=== PATIENT | female | born 1965 | race African-American/Black ===

== ENCOUNTER 2020-07-08 10:42 | Emergency (ER) | payer MEDICAID, SELFPAY ==
[2020-07-08 10:42] VITALS: BP 146/110; PULSE 77; RESP 18; TEMP 36.2; O2SAT 99; BMI 39.7
--- NOTE | 2020-07-08 10:52 | VDLE_ITS ---
Reason For Study: LLE Pain Procedure LEFT Exam performed portable in ED. GSV is normal. A preliminary report was called and/or faxed CFV is compressible, spontaneous, phasic, to Konrad TRUONG. competent, and demonstrates normal augmentation. FV is compressible, spontaneous, phasic, competent and demonstrates normal augmentation. POP V is compressible, spontaneous, phasic, competent and demonstrates normal augmentation. T/P Trunk is compressible. PTV is compressible. LT PerV is compressible. Patient unable to tolerate compressions at distal thigh; relied on color doppler. Interpretation Summary There is no evidence of left lower extremity deep vein thrombosis. Left great saphenous vein appears patent and compressible segmentally. See comment regarding distal thigh Ordering Physician: Konrad Ridley Referring Physician: Zack Staples Performed By: Cici Corona, LUIS FELIPE, RVT
--- NOTE | 2020-07-08 11:11 | ED.DCSUM_ITS ---
History of Present Illness Informant: Patient, Family Occurred: - - 2 years Mechanism/Context: - - No injury Onset: - - 2 years Context: Gradual Onset Timing: Continuous Quality of Pain: Throbbing Location: Left leg Current Severity: Mild Maximum Severity: Mild Worsened by: Movement and ambulation Relieved by: Nothing Associated Symptoms: Negative for: Parasthesia, Weakness, Loss of Funtion Narrative: 54-year-old female history of PTSD and fibromyalgia presents to the emergency department after being sent to the emergency department from the local urgent care to rule out DVT. Patient has not seen a doctor in 2 years and has been dealing with pain in her left leg for 2 years. It is mostly in her posterior knee and her calf. It is been constant for the last 2 years. No trauma or injury. No numbness tingling or weakness. No recent travel or surgery. No history of DVT or PE. She is not on oral control pills. No hemoptysis or chest pain. No trauma. She is still ambulatory. No back pain or fevers. No rash. Rest of her review of systems are negative Tetanus Immunization: Unknown Prior similar symptoms: No Recent Illness/Hospitalization: No <Konrad Ridley - Last Filed: 07/08/20 11:57> <Donaldo Jovel - Last Filed: 07/08/20 12:21> Chief Complaint: Lower Extremity Injury Past Medical History Prior records reviewed: Yes Past Medical History: - - PTSD and fibromyalgia Surgical History: no surgical history Lives: With Family Smoking Status: Never smoker Alcohol: None Drugs: None <Konrad Ridley - Last Filed: 07/08/20 11:57> <Donaldo Jovel - Last Filed: 07/08/20 12:21> - Allergies and Home Meds Allergies/Adverse Reactions: Allergies No Known Allergies Allergy (Verified 07/08/20 10:44) Primary Care Physician: Zack Staples DO [Primary Care Provider] - Keep Link appointment Review of Systems All systems negative except as indicated General: Denies: Chills, Fever, Sweats Eyes: Denies: Visual changes - bilaterally, Diplopia ENT: Denies: Rhinorrhea, Sore throat Cardiovascular: Denies: Chest pain, Palpitations Respiratory: Denies: Dyspnea, Cough, Dyspnea on exertion Gastrointestinal: Denies: Abdominal pain, Nausea, Vomiting, Diarrhea, Melena, Hematochezia Genitourinary: Denies: Dysuria, Hematuria, Frequency Musculoskeletal: Reports: Swelling, Extremity Pain. Denies: Back pain Skin: Denies: Rash, Wounds Neurological: Denies: Headache, Weakness, Numbness <Konrad Ridley - Last Filed: 07/08/20 11:57> Physical Exam Vital Signs/Narrative: Vital Signs Temp Pulse Resp BP Pulse Ox 07/08/20 10:42 97.2 F L 77 18 146/110 H 99 Inital Vital Signs reviewed: Yes - Extremity Exam Left Tib Fib: - - Patient has no asymmetrical leg swelling. She has 1+ edema of both lower extremities. She has no redness no warmth no palpable cords she has no bruising or ecchymosis. DP and PT pulse normal left and right lower extremity. He has normal sensation throughout left lower extremity. No calf pain on palpation. She has normal range of motion actively at her left hip knee and ankle. She has no pain on palpation of her thigh. Femoral pulse is normal. Back is nontender on palpation. She is ambulatory General: Well nourished, Well developed Head: Normocephalic, Atraumatic Eyes: Perrl, EOMI ENT: No Trauma, Moist Mucous Membranes Neck: Nontender, Full ROM Cardiovascular: Regular rate, Regular rhythm, No murmurs Respiratory: No distress, CTA bilaterally, Chest nontender Abdomen: Soft, Nontender, Nondistended, Normal bowel sounds Back: Nontender Skin: Normal color, No rash Neurological: Alert, Oriented x3, Cranial nerves II-XII grossly intact, Normal Strength, Normal Sensation Psychological: Normal affect <Konrad Ridley - Last Filed: 07/08/20 11:57> Vital Signs/Narrative: Vital Signs Temp Pulse Resp BP Pulse Ox 07/08/20 12:18 76 18 152/87 H 97 07/08/20 10:42 97.2 F L 77 18 146/110 H 99 <Donaldo Jovel - Last Filed: 07/08/20 12:21> Diagnostic/Tx/Re-eval - Medical Decision Making Patient's left lower extremity venous ultrasound was negative. Patient was reassured. We will place an Bryant wrap on her leg. She will rest ice and elevate. She has an upcoming appointment with her primary care physician for close follow-up. At this time she has no signs of infection or compartment syndrome and we feel she is safe for outpatient follow-up. She will use anti- inflammatories and Tylenol and follow-up as directed or return for worsening symptoms which were discussed <Konrad Ridley - Last Filed: 07/08/20 11:57> - Medical Decision Making Patient was seen with me. I did a [id number] examination with the patient. Patient presents for possible DVT in her left leg. Patient admits to pain in her left leg. Patient states the pain is in her hip and radiates down to her lower leg and ankle area. Patient denies any trauma or injury. Patient went to urgent care earlier and was referred to the emergency department. Vital signs are stable. Patient is afebrile. Patient is in no acute distress. Musculoskeletal exam reveals mild tenderness over the left knee and left leg. There is pain with dorsiflexion of the left ankle. There is mild edema of the left leg compared to the right. Range of motion of the left knee was limited secondary to pain. Sensation was intact to light touch in all digits. Capillary refill was less than 2 seconds in all digits. Venous duplex of the left leg was obtained. There is no evidence of DVT. Patient was instructed to ice and elevate the left leg. Patient was instructed to take anti-inflammatory medication or Tylenol as needed for pain. Patient was instructed to return if worse in any way. Patient understood and was agreeable with the plan. All questions were answered. <Donaldo Jovel - Last Filed: 07/08/20 12:21> ED Disposition <Konrad Ridley - Last Filed: 07/08/20 11:57> <Donaldo Jovel - Last Filed: 07/08/20 12:21> - Plan for ED Patient: Disposition: Home or Assisted Living Diagnosis: Pain of left lower extremity Instructions: ED Peripheral Edema, Unilateral Referrals: Zack Staples DO [Primary Care Provider] - Keep Link appointment
[2020-07-08 12:18] VITALS: BP 152/87; PULSE 76; RESP 18; O2SAT 97
== END 2020-07-08 12:32 | disposition home or self-care (01) ==
PROVIDERS: Emergency Provider Physician Assistant Medical; PCP Student in an Organized Health Care Education/Training Program
DX: M79.605 Pain in left leg (principal); M79.7 Fibromyalgia
CPT/HCPCS: 93971; 99282

== ENCOUNTER 2021-08-30 06:48 | Observation (INO) | payer MEDICAID, SELFPAY ==
[2021-08-30 06:49] VITALS: PULSE 93; RESP 18; TEMP 37.3; O2SAT 99; BMI 38.5
--- NOTE | 2021-08-30 07:19 | EDS_ITS ---
HPI History of Present Illness Chief Complaint: Other, Pain/Inj Informant: patient Onset/Context/Timing Onset: Today Context: Sudden Onset Timing: Continuous Quality: pain Location: left hip and down into knee Current Severity: Moderate Maximum Severity: Severe Worsened by: any little movement Relieved by: remaining still Associated Symptoms Associated Symptoms: none Narrative Narrative: Patient states she woke up about 5 hours prior to arrival with severe pain in her left hip and it locked up. She needed to go to the bathroom and because she was not able to move it or stand or walk, she urinated herself but states that it was because she needed to go so bad. She denies any bowel or bladder dysfunction otherwise or saddle anesthesia or numbness anywhere in her lower extremities or back pain. She states she did not injure it. When she went to bed it felt okay. She crawled to the bathroom, and around until she realized since it was not working and she was not able to stand or walk on it at all, she presents to the emergency department. She has never had this problem before. She denies any recent fevers or chills or other illness. She denies any immobilization or travel, she states she works at a local [employer] 7 days/week and never takes a day off and is always on her feet. [facility] Medical History (Updated 08/30/21 @ 08:[address] Chidi Kilpatrick MD) Fibromyalgia Home Medications NK 08/30/21 [History Last Taken Unknown] Allergy/AdvReac Type Severity Reaction Status Date / Time No Known Allergies Allergy Verified 08/30/21 06:54 Social History Smoking Status: Never smoker ROS ROS ED Constitutional Constitutional ED: Denies chills or fever(s) Eyes Eyes: Denies change in vision or diplopia ENT ENT ED: Denies rhinorrhea or sore throat Cardiovascular Cardiovascular: Denies chest pain or palpitations Respiratory/Chest Respiratory/Chest: Denies cough or dyspnea Gastrointestinal Gastrointestinal: Denies abdominal pain, diarrhea, nausea or vomiting Genitourinary Genitourinary ED: Denies dysuria or hematuria Musculoskeletal Musculoskeletal: Reports difficulty walking and extremity pain; Denies back pain or neck pain Integumentary Denies abscess or rash Neurologic Neurologic: Denies headache(s), paresthesias or weakness Psychiatric Psychiatric: Denies anxiety or suicidal thoughts EXAM Physical Exam Const Vital Signs: 08/30/21 06:49 08/30/21 06:55 08/30/21 07:57 Temperature 99.1 F Temperature Source Temporal Pulse Rate 93 75 Respiratory Rate 18 18 Respiratory Effort Normal Respiratory Pattern Normal Blood Pressure 158/91 H Blood Pressure Mean 113 Pulse Ox 99 98 Oxygen Delivery Method Room Air Positive well nourished and well developed General Appearance ED: well developed and NAD HEENT Reports moist mucous membranes normocephalic and atraumatic Eyes PERRL and EOMs intact bilaterally Neck full ROM and supple Resp normal respiratory effort and clear to auscultation bilaterally Cardio regular rate, regular rhythm and no murmurs Rate: Negative for tachycardic GI non-tender and non-distended Auscultation: normoactive bowel sounds Palpation: soft Back/Spine no CVA tenderness General Back: other FROM Extremity normal to inspection Extremity Narrative: Patient not able to move left knee or hip, and any little passive movement of either the patient screams and resists. No knee effusion. All compartments of all 4 extremities are soft and nondistended and symmetric. Mildly tender at the left greater trochanter and in the area of the patellar tendon but not severe. No other areas of bony tenderness. No peripheral edema. No palpable cords. General Extremety ED: Yes tenderness; Negative for edema or pulses abnormal General Extremity: Negative for edema or pulses abnormal Neuro oriented x3, CN's II-XII intact bilaterally and no sensory deficits noted Sensorium / Orientation: awake and alert Motor Exam: strength 5/5 throughout Skin no rashes or lesions noted and no wounds MDM MDM MDM Narrative Medical decision making narrative: Toradol was ordered, but the patient declined it saying that she took Aleve about 4 hours prior to getting here, which she did not say initially. She did not want any other pain medication, as long as she remained still she was in no pain and felt okay, but any little movement of the hip creates severe pain to the point where she cannot stand or walk. Differential includes inflammatory synovitis, inflammatory arthritis including crystal induced arthritis, septic arthritis, occult fracture although I think this is less likely given the history. Labs are noted, significantly elevated CRP, with everything else basically unremarkable. X-rays are unremarkable. Plan is for admission for further evaluation since she cannot stand or walk, discussed with orthopedics and hospitalist. Lab Data Attestation: I reviewed the patient's lab results. Labs: Laboratory Results - last 24 hr 08/30/21 08/30/21 07:25 07:25 WBC 8.4 RBC 4.96 Hgb 13.3 Hct 42.0 MCV 84.7 MCH 26.8 L MCHC 31.7 L RDW Std Deviation 41.4 RDW Coeff of Saeed 13.3 Plt Count 341 MPV 9.5 Immature Gran % (Auto) 0.400 Neut % (Auto) 73.9 H Lymph % (Auto) 15.9 L [place] % (Auto) 7.6 Eos % (Auto) 1.8 Baso % (Auto) 0.4 Absolute Neuts (auto) 6.3 Absolute Lymphs (auto) 1.34 Nucleated RBC % 0 ESR 28 Sodium 137 Potassium 3.4 L Chloride 104 Carbon Dioxide 27.0 Anion Gap 6 BUN 17 Creatinine 0.76 Estim Creat Clear Calc 107.94 Est GFR (MDRD) Af Amer 102 Est GFR (MDRD) Non-Af 84 BUN/Creatinine Ratio 22.5 H Glucose 105 Uric Acid 4.1 Calcium 8.9 C-React Prot Ext Range 24.80 H Radiography Diagnostic Testing: Clinical Impression(s) from Imaging Studies Hip/Pelvis X-Ray 08/30/21 07:40 IMPRESSION: No acute findings in the pelvis or left hip. Electronically Signed: Sky Klein MD at 7:56 EST Tel , Service support , Knee X-Ray 08/30/21 07:40 IMPRESSION: No acute findings in the left knee. Electronically Signed: Sky Klein MD at 7:54 EST Tel , Service support , Discharge Plan Triage Chief Complaint: Other, Pain/Inj ED Provider: Chidi Kilpatrick Dx/Rx/DC Orders Clinical Impression: Inability to ambulate due to left hip Prescriptions: No Action NK RF: 0 Primary Care Provider: Zack Staples Referrals: Zack Staples, [Primary Care Provider] - Disposition Disposition: [facility]
--- NOTE | 2021-08-30 07:40 | RAD_ITS ---
EXAM: XR Left Hip With Pelvis When Performed, 2 or 3 Views CLINICAL INDICATION: 55 years old, Female; pain TECHNIQUE: Two or three views of the left hip with pelvis when performed. This report was created using [employer]ismaStar report DCWafers technology. COMPARISON: None. FINDINGS: Bones/joints: Unremarkable. No displaced fracture. No destructive or sclerotic lesions. Note that overlapping bowel shadows may however obscure fine detail. Sacroiliac joint is unremarkable. No widening of the pubic symphysis. The articular structures are unremarkable. Soft tissues: Bilateral tubal ligation clips. No soft tissue swelling or gas. RAD/HIP, UNI W/ Pelvis 2-3 Views IMPRESSION: No acute findings in the pelvis or left hip. Electronically Signed: Sky Klein MD at 7:56 EST Tel , Service support ,
--- NOTE | 2021-08-30 07:40 | RAD_ITS ---
EXAM: XR Left Knee, 1 or 2 Views CLINICAL INDICATION: 55 years old, Female; pain TECHNIQUE: Frontal and/or lateral views of the left knee. This report was created using 3D FUTURE VISION II report generation technology. COMPARISON: None. FINDINGS: Bones/joints: Patellar spur. No acute fracture. No subluxation. Normal alignment. Preservation of the joint space. No sclerotic or destructive changes observed. Soft tissues: Unremarkable. No soft tissue swelling or gas. No radiopaque foreign body. RAD/Knee 1 or 2 Views IMPRESSION: No acute findings in the left knee. Electronically Signed: Sky Klein MD at 7:54 EST Tel , Service support ,
[2021-08-30 07:42] LABS: Erythrocyte Sedimentation Rate 28 mm/hr (0-30)
[2021-08-30 07:46] LABS: Absolute Lymphocyte Count 1.34 X10^3/uL (0.83-4.51); Absolute Neutrophil Count 6.3 X10^3/uL (2.0-7.7); Basophil# 0.03 X10^3/uL; Basophil% 0.4 % (0-1); Eosinophil# 0.15 X10^3/uL; Eosinophils% 1.8 % (0-5); Hemoglobin 13.3 g/dL (12.0-15.0); Lymphocyte # 1.34 X10^3/ul (0.83-4.51); Lymphocyte % 15.9 % (19-41); Mean Corp Hgb Conc 31.7 g/dL (32-36); Mean Corpuscular Hgb 26.8 pg (27.0-32.0); Mean Corpuscular Volume 84.7 fL (81-99); Mean Platelet Vol. 9.5 fl (6.2-12.0); Monocyte# 0.64 X10^3/uL; Monocyte% 7.6 % (0-10); NRBC Flagged by Analyzer 0 % (0-5); Neutrophil # 6.25 X10^3/uL (2.7-7.7); Neutrophil % 73.9 % (47-70); Platelet Count 341 K/mm3 (150-450); RBC Distribution Width CV 13.3 % (11.6-14.6); RBC Distribution Width SD 41.4 fl (35.1-43.9); Red Blood Count 4.96 M/mm3 (4.2-5.4); White Blood Count 8.4 K/mm3 (4.4-11.0)
[2021-08-30 07:54] LABS: Anion Gap 6 (5-15); BUN 17 mg/dL (7-18); BUN/Creat Ratio 22.5 RATIO (10-20); Calcium,Total 8.9 mg/dL (8.5-10.1); Chloride 104 mmol/L (98-107); Creatinine, Serum 0.76 mg/dL (0.55-1.02); EST Glomerular Filtration Rate 84 mL/min (>60); Est Glom Filt Rate - Afr Amer 102 mL/min (>60); Estimated Creatinine Clearance 107.94 ml/min; Glucose 105 mg/dL (74-106); Potassium 3.4 mmol/L (3.5-5.1); Sodium Level 137 mmol/L (136-145); Uric Acid 4.1 mg/dL (2.6-6.0)
[2021-08-30 07:57] VITALS: BP 158/91; PULSE 75; RESP 18; O2SAT 98
--- NOTE | 2021-08-30 08:47 | HP.PCM.HOS_ITS ---
HPI - General HPI Narrative ARNALDO JOYCE, is a 55 F with a PMH as outlined including fibromyalgia who presents via the ED on 08/29/2021 with a complaint of left hip pain. Hip pain started spontaneously, and said she got up to go to the bathroom, but wasnt able to ambulate. Pain is better when shes resting, and worsened by movement. She took aleve a few hours before, which didnt help much. She denied any fall or any type of trauma to her hip. Patient said she worked in a local [employer] and was on her feet for long hours. REview of systems was otherwise negative. Vitals were BP of 158/91. {R pf 75,. RR of 18 and she was saturating at 98% on room air. CBC was unremarkable, and BMP was also unremarkable. ESR was 28, but CRP was mar kedly elevated at 24.8. Imaging of the left hip showed no acute findings and left knee xray also showed no acute findings. She is being admitted to be managed for intractable left hip pain of unclear etiology. [facility] Medical History (Updated 08/30/21 @ 08:[address] Erinn Canseco MD) Fibromyalgia Home Medications NK 08/30/21 [History Last Taken Unknown] Allergy/AdvReac Type Severity Reaction Status Date / Time No Known Allergies Allergy Verified 08/30/21 06:54 Social History Smoking Status: Never smoker Vital Signs Vital Signs Vital Signs: 08/30/21 06:49 08/30/21 06:55 08/30/21 07:57 Temperature 99.1 F Temperature Source Temporal Pulse Rate 93 75 Respiratory Rate 18 18 Respiratory Effort Normal Respiratory Pattern Normal Blood Pressure 158/91 H Blood Pressure Mean 113 Pulse Ox 99 98 Oxygen Delivery Method Room Air Weight Weight: 178 lb 2.136 oz Body Mass Index (BMI) 38.5 Physical Exam Const alert, oriented x3 and no apparent distress General Appearance: cooperative HEENT normocephalic, head/scalp atraumatic and hearing grossly normal bilaterally Eyes PERRL, EOMs intact bilaterally and conjunctivae normal Neck no lymphadenopathy Resp normal respiratory effort, no retractions, no use of accessory muscles and clear to auscultation bilaterally Cardio regular rate, regular rhythm, S1 normal heart sound, S2 normal heart sound and no murmurs GI normal to inspection, nondistended, normoactive bowel sounds, soft to palpation, non-tender and non-distended Extremity normal to inspection and no clubbing, cyanosis or edema Extremity Narrative: has pain with movement of left hip Peripheral Pulses: Yes pulses 2+ throughout and brachial pulses present Skin no rashes or lesions noted Neuro oriented x3 and moves all extremities Sensorium / Orientation: awake and alert Psych affect normal Results Lab / Micro Data Result Diagrams: 08/30/21 07:25 08/30/21 07:25 Labs: Laboratory Results - last 24 hr 08/30/21 07:25: WBC 8.4, RBC 4.96, Hgb 13.3, Hct 42.0, MCV 84.7, MCH 26.8 L, MCHC 31.7 L, RDW Std Deviation 41.4, RDW Coeff of Saeed 13.3, Plt Count 341, MPV 9.5, Immature Gran % (Auto) 0.400, Neut % (Auto) 73.9 H, Lymph % (Auto) 15.9 L, [place] % (Auto) 7.6, Eos % (Auto) 1.8, Baso % (Auto) 0.4, Absolute Neuts (auto) 6.3, Absolute Lymphs (auto) 1.34, Nucleated RBC % 0, ESR 28 08/30/21 07:25: Sodium 137, Potassium 3.4 L, Chloride 104, Carbon Dioxide 27.0, Anion Gap 6, BUN 17, Creatinine 0.76, Estim Creat Clear Calc 107.94, Est GFR (MDRD) Af Amer 102, Est GFR (MDRD) Non-Af 84, BUN/Creatinine Ratio 22.5 H, Glucose 105, Uric Acid 4.1, Calcium 8.9, C-React Prot Ext Range 24.80 H Radiology Impression Hip/Pelvis X-Ray 08/30/21 07:40 IMPRESSION: No acute findings in the pelvis or left hip. Electronically Signed: Sky Klein MD at 7:56 EST Tel , Service support , Knee X-Ray 08/30/21 07:40 IMPRESSION: No acute findings in the left knee. Electronically Signed: Sky Klein MD at 7:54 EST Tel , Service support , Assessment & Plan Assessment/Plan (1) Inability to ambulate due to left hip: (2) Left hip pain: PLAN: #Left hip pain with debility * etiology is unclear * admit to med surg under observation * xray of left hip was negative * get MRI of left hip * consult PT/OT. Fall precautions * orthopedic surgery consulted from ED * #History of fibromyalgia: not on any meds. Stable. Follow up with PCP and rheumatology on outpatient basis DVT prophylaxis: lovenox Charges/Coding Visit Charges OBSV E&M: 12648 Initial observation care L2
[2021-08-30 09:29] VITALS: BP 161/77; PULSE 77; RESP 16; TEMP 37.2; O2SAT 99
--- NOTE | 2021-08-30 09:41 | PCS.PANDOC ---
PANDEMIC DOCUMENTATION INITIATED: Date: 05/27/2021 Time: 190
[2021-08-30 09:51] VITALS: BMI 37.6
[2021-08-30 10:06] VITALS: BP 140/90; PULSE 72; RESP 16; TEMP 36.9; O2SAT 100
--- NOTE | 2021-08-30 10:56 | MRI_ITS ---
STUDY: MRI BILATERAL HIPS T PELVIS REASON FOR EXAM: Severe left hip pain after a fall. TECHNIQUE: Standardized fat and water weighted pulse sequences were obtained in all 3 orthogonal planes. COMPARISON: Radiographs 08/30/2021. FINDINGS: RIGHT HIP There is right hip arthrosis with chondral thinning (T2 sagittal image 37) and very mild subchondral cystic change of the acetabulum. Normal right labrum. Normal right femoral head. Normal right femoral neck and intratrochanteric region. Normal right gluteus minimus, medius and iliopsoas tendons and distal insertions. Normal right superior and inferior pubic rami. Normal right pubic symphysis. Normal right ischial tuberosity. Normal origin of the right hamstring tendons. There is mild periarticular bone edema of the right sacroiliac joint (inversion recovery coronal images 12, 13). There is very mild bilateral greater trochanteric bursitis (inversion recovery coronal image 12). LEFT HIP Normal left hip joint without articular joint space narrowing. Normal left acetabulum. Normal left labrum. Normal left femoral head. There is a small bone contusion of the left greater trochanter (inversion recovery coronal image 12). Normal left gluteus minimus, medius and iliopsoas tendons and distal insertions. Normal left superior and inferior pubic rami. Normal left pubic symphysis. Normal left ischial tuberosity. Normal origin of the left hamstring tendons. There is mild periarticular edema bone of the left sacroiliac joint (inversion recovery coronal images 11-13). MRI/Pelvis (Routine) IMPRESSION: Small bone contusion of the left greater trochanter. Right hip arthrosis. Mild periarticular bone edema of the bilateral sacroiliac joints, suggestive of sacroiliitis. Very mild bilateral greater trochanteric bursitis. Electronically Signed: Javon Almazan MD at 13:58 EST Tel , Service support ,
[2021-08-30] MEDS: Ketorolac 30 MG/ML Syringe IV (11:25)
[2021-08-30] MEDS: Acetaminophen 325 MG Tablet 650 MG PO (11:26)
[2021-08-30 14:04] VITALS: BP 139/78; PULSE 75; RESP 16; TEMP 36.7; O2SAT 94
[2021-08-30] MEDS: 0.9% Normal Saline 1,000 ML 100 ML IV ×2 (14:17→21:29)
[2021-08-30 20:00] VITALS: BP 142/77; PULSE 80; RESP 14; TEMP 37.2; O2SAT 98
[2021-08-31] MEDS: Acetaminophen 325 MG Tablet 650 MG PO ×2 (01:39→17:29)
[2021-08-31 01:50] VITALS: BP 134/79; PULSE 78; RESP 14; TEMP 36.8; O2SAT 96
[2021-08-31 08:33] LABS: Absolute Lymphocyte Count 1.77 X10^3/uL (0.83-4.51); Absolute Neutrophil Count 3.8 X10^3/uL (2.0-7.7); Basophil# 0.03 X10^3/uL; Basophil% 0.5 % (0-1); Eosinophil# 0.22 X10^3/uL; Eosinophils% 3.4 % (0-5); Hematocrit 40.3 % (37-47); Hemoglobin 12.8 g/dL (12.0-15.0); Lymphocyte # 1.77 X10^3/ul (0.83-4.51); Lymphocyte % 27.1 % (19-41); Mean Corp Hgb Conc 31.8 g/dL (32-36); Mean Corpuscular Hgb 26.9 pg (27.0-32.0); Mean Corpuscular Volume 84.7 fL (81-99); Mean Platelet Vol. 9.2 fl (6.2-12.0); Monocyte# 0.71 X10^3/uL; Monocyte% 10.9 % (0-10); NRBC Flagged by Analyzer 0 % (0-5); Neutrophil # 3.79 X10^3/uL (2.7-7.7); Neutrophil % 57.9 % (47-70); Platelet Count 343 K/mm3 (150-450); RBC Distribution Width CV 13.4 % (11.6-14.6); RBC Distribution Width SD 41.6 fl (35.1-43.9); Red Blood Count 4.76 M/mm3 (4.2-5.4); White Blood Count 6.5 K/mm3 (4.4-11.0)
[2021-08-31 08:51] LABS: Anion Gap 3 (5-15); BUN 10 mg/dL (7-18); BUN/Creat Ratio 14.8 RATIO (10-20); Calcium,Total 8.5 mg/dL (8.5-10.1); Chloride 111 mmol/L (98-107); Creatinine, Serum 0.67 mg/dL (0.55-1.02); EST Glomerular Filtration Rate 97 mL/min (>60); Est Glom Filt Rate - Afr Amer 117 mL/min (>60); Estimated Creatinine Clearance 119.56 ml/min; Glucose 89 mg/dL (74-106); Potassium 3.7 mmol/L (3.5-5.1); Sodium Level 139 mmol/L (136-145)
[2021-08-31 09:44] VITALS: BP 131/69; PULSE 81; RESP 16; TEMP 36.9; O2SAT 96
[2021-08-31] MEDS: Enoxaparin 40 MG/0.4 ML Syringe SC (09:52)
--- NOTE | 2021-08-31 12:16 | PN.HOSP_ITS ---
Subjective Subjective Patient seen and examined. She says the left hip pain is much better today. She has no other complaints. She is awaiting evaluation by orthopedic surgery and PT. Review of systems otherwise negative. SHe has remained hemodynamically stable. Objective Data Objective Data Vital Signs: Vital Signs Temp Pulse Resp BP Pulse Ox 98.4 F 81 16 131/69 H 96 08/31/21 09:44 08/31/21 09:44 08/31/21 09:44 08/31/21 09:44 08/31/21 09:44 Oxygen Delivery Method Room Air Weight: 173 lb 15.115 oz Body Mass Index (BMI) 37.6 Intake & Output: Intake and Output for Last 24 Hours 08/29/21 08/30/21 08/31/21 23:59 23:59 23:59 Intake Total 720 / 920 1200 / 1200 Output Total 1000 / 1000 Balance 720 / 470 200 / 200 Lab / Micro Data Result Diagrams: 08/31/21 08:21 08/31/21 08:21 Labs: Laboratory Results - last 24 hr 08/31/21 08:21: WBC 6.5, RBC 4.76, Hgb 12.8, Hct 40.3, MCV 84.7, MCH 26.9 L, MCHC 31.8 L, RDW Std Deviation 41.6, RDW Coeff of Saeed 13.4, Plt Count 343, MPV 9.2, Immature Gran % (Auto) 0.200, Neut % (Auto) 57.9, Lymph % (Auto) 27.1, Morgan % (Auto) 10.9 H, Eos % (Auto) 3.4, Baso % (Auto) 0.5, Absolute Neuts (auto) 3.8, Absolute Lymphs (auto) 1.77, Nucleated RBC % 0 08/31/21 08:21: Sodium 139, Potassium 3.7, Chloride 111 H, Carbon Dioxide 25.0, Anion Gap 3 L, BUN 10, Creatinine 0.67, Estim Creat Clear Calc 119.56, Est GFR (MDRD) Af Amer 117, Est GFR (MDRD) Non-Af 97, BUN/Creatinine Ratio 14.8, Glucose 89, Calcium 8.5 Radiography Diagnostic Testing: Radiology Impression Pelvis MRI 08/30/21 10:56 IMPRESSION: Small bone contusion of the left greater trochanter. Right hip arthrosis. Mild periarticular bone edema of the bilateral sacroiliac joints, suggestive of sacroiliitis. Very mild bilateral greater trochanteric bursitis. Electronically Signed: Javon Almazan MD at 13:58 EST Tel , Service support , Physical Exam Const alert, oriented x3 and no apparent distress General Appearance: cooperative Exam Limitations: no limitations HEENT normocephalic, head/scalp atraumatic, hearing grossly normal bilaterally and moist oral mucous membranes Head and Scalp: normocephalic Eyes PERRL, EOMs intact bilaterally and conjunctivae normal Neck no lymphadenopathy Resp normal respiratory effort, no retractions, no use of accessory muscles and clear to auscultation bilaterally Cardio regular rate, regular rhythm, S1 normal heart sound, S2 normal heart sound and no murmurs GI normal to inspection, nondistended, normoactive bowel sounds, soft to palpation, non-tender and non-distended Extremity normal to inspection and no clubbing, cyanosis or edema Extremity Narrative: pain in left hip has improved Skin no rashes or lesions noted Neuro oriented x3 and moves all extremities Sensorium / Orientation: awake and alert Psych affect normal Assessment & Plan Assessment/Plan (1) Inability to ambulate due to left hip: (2) Left hip pain: PLAN: #Left hip pain with debility * etiology is unclear * pain is much better today though. * MRI of the left hip shwoed small bone contusion of the left greater trochanter and right hip arthrosis as well as mild periarticular bony edema of the bilateral sacroiliac joints, suggestive of sick ileitis greater trochanteric bursitis and very mild bilateral * xray of left hip was negative * PT OT on board. Fall precautions. * orthopedic surgery consulted; await rec's. * #History of fibromyalgia: not on any meds. Stable. Follow up with PCP and rheumatology on outpatient basis DVT prophylaxis: lovenox Charges/Coding Visit Charges Inpatient E&M: 96697 Subs Hosp L2
[2021-08-31 14:23] VITALS: BP 133/71; PULSE 70; RESP 16; TEMP 36.9; O2SAT 95
--- NOTE | 2021-08-31 15:15 | CM.ED ---
SW note SW was advised by the CM RN that patient was unable to ambulate but ortho was to see. Per PT/OT patient walked 15 feet and has son nearby to assist. SW remains available if needs arise. RN MJ Thomas Updated. Plan: To be determined Olivia YU
[2021-08-31 21:00] VITALS: BP 139/79; PULSE 57; RESP 16; TEMP 36.8; O2SAT 97
[2021-09-01 03:00] VITALS: BP 147/81; PULSE 77; RESP 16; TEMP 36.9; O2SAT 96
[2021-09-01] MEDS: Acetaminophen 325 MG Tablet 650 MG PO (03:43)
[2021-09-01 07:01] LABS: Absolute Lymphocyte Count 1.84 X10^3/uL (0.83-4.51); Absolute Neutrophil Count 3.1 X10^3/uL (2.0-7.7); Basophil# 0.04 X10^3/uL; Basophil% 0.7 % (0-1); Eosinophil# 0.22 X10^3/uL; Eosinophils% 3.8 % (0-5); Hematocrit 38.8 % (37-47); Hemoglobin 12.4 g/dL (12.0-15.0); Lymphocyte # 1.84 X10^3/ul (0.83-4.51); Lymphocyte % 31.9 % (19-41); Mean Corpuscular Volume 84.3 fL (81-99); Mean Platelet Vol. 9.2 fl (6.2-12.0); Monocyte# 0.51 X10^3/uL; Monocyte% 8.8 % (0-10); NRBC Flagged by Analyzer 0 % (0-5); Neutrophil # 3.14 X10^3/uL (2.7-7.7); Neutrophil % 54.5 % (47-70); Platelet Count 308 K/mm3 (150-450); RBC Distribution Width CV 13.4 % (11.6-14.6); RBC Distribution Width SD 41.6 fl (35.1-43.9); White Blood Count 5.8 K/mm3 (4.4-11.0)
[2021-09-01 07:15] LABS: Anion Gap 4 (5-15); BUN 10 mg/dL (7-18); BUN/Creat Ratio 14.3 RATIO (10-20); Calcium,Total 8.6 mg/dL (8.5-10.1); Chloride 111 mmol/L (98-107); EST Glomerular Filtration Rate 93 mL/min (>60); Est Glom Filt Rate - Afr Amer 112 mL/min (>60); Estimated Creatinine Clearance 114.44 ml/min; Glucose 98 mg/dL (74-106); Potassium 4.1 mmol/L (3.5-5.1); Sodium Level 141 mmol/L (136-145)
--- NOTE | 2021-09-01 08:30 | CON.PCM.OR_ITS ---
HPI Consult Data Date of Consult: 09/01/21 PCP / Referring MD: Dr. Kearney HPI Narrative Reason for Consultation: Left hip pain HPI Narrative: ARNALDO JOYCE, is a 55 F who presents Thursday with LLE/Hip pain 07/21. Inability to ambulate and incontinence which she has had since last year. She denies N/T/P or perineal paresthesias. She states that the pain is improved today and she is able to ambulate with a walker. She denies F/C/N/V. [facility] Medical History (Updated 08/30/21 @ 09:59 by Compa Carcamo) Anxiety Arthritis Asthma Depression Fibromyalgia Migraines Murmur Home Medications NK 08/30/21 [History Last Taken Unknown] Allergy/AdvReac Type Severity Reaction Status Date / Time No Known Allergies Allergy Verified 08/30/21 06:54 Social History Smoking Status: Never smoker Vital Signs Vital Signs Vital Signs: 08/31/21 09:44 08/31/21 14:23 08/31/21 21:00 Temperature 98.4 F 98.5 F 98.3 F Temperature Source Oral Oral Oral Pulse Rate 81 70 57 L Respiratory Rate 16 16 16 Respiratory Effort Normal Non-Labored Respiratory Depth Normal Respiratory Pattern Normal Blood Pressure 131/69 H 133/71 H 139/79 H Blood Pressure Mean 89 91 99 Blood Pressure Source Monitor Monitor Monitor Blood Pressure Position Semi-Fowlers Sitting Semi-Fowlers Blood Pressure Location Right Arm Right Arm Right Arm Pulse Ox 96 95 97 Oxygen Delivery Method Room Air Room Air Room Air 09/01/21 03:00 Temperature 98.5 F Temperature Source Oral Pulse Rate 77 Respiratory Rate 16 Respiratory Effort Respiratory Depth Respiratory Pattern Blood Pressure 147/81 H Blood Pressure Mean 103 Blood Pressure Source Monitor Blood Pressure Position Semi-Fowlers Blood Pressure Location Right Arm Pulse Ox 96 Oxygen Delivery Method Room Air Weight Weight: 173 lb 15.115 oz Body Mass Index (BMI) 37.6 Physical Exam Const alert, oriented x3 and no apparent distress General Appearance: cooperative Extremity normal capillary refill, no clubbing, cyanosis or edema, no calf tenderness and no pedal edema Extremity Narrative: ROM of specifically the LLE produces minimal pain. She has mild pain to palpation along the greater trochanter Neuro moves all extremities, no focal motor deficits and no sensory deficits noted Motor Exam: strength 5/5 throughout Psych mental status grossly normal Lab / Micro Data Result Diagrams: 09/01/21 06:50 09/01/21 06:50 Labs: Laboratory Results - last 24 hr 08/31/21 08:21: WBC 6.5, RBC 4.76, Hgb 12.8, Hct 40.3, MCV 84.7, MCH 26.9 L, MCHC 31.8 L, RDW Std Deviation 41.6, RDW Coeff of Saeed 13.4, Plt Count 343, MPV 9.2, Immature Gran % (Auto) 0.200, Neut % (Auto) 57.9, Lymph % (Auto) 27.1, Bremer % (Auto) 10.9 H, Eos % (Auto) 3.4, Baso % (Auto) 0.5, Absolute Neuts (auto) 3.8, Absolute Lymphs (auto) 1.77, Nucleated RBC % 0 08/31/21 08:21: Sodium 139, Potassium 3.7, Chloride 111 H, Carbon Dioxide 25.0, Anion Gap 3 L, BUN 10, Creatinine 0.67, Estim Creat Clear Calc 119.56, Est GFR (MDRD) Af Amer 117, Est GFR (MDRD) Non-Af 97, BUN/Creatinine Ratio 14.8, Glucose 89, Calcium 8.5 09/01/21 06:50: WBC 5.8, RBC 4.60, Hgb 12.4, Hct 38.8, MCV 84.3, MCH 27.0, MCHC 32.0, RDW Std Deviation 41.6, RDW Coeff of Saeed 13.4, Plt Count 308, MPV 9.2, Immature Gran % (Auto) 0.300, Neut % (Auto) 54.5, Lymph % (Auto) 31.9, Bremer % (Auto) 8.8, Eos % (Auto) 3.8, Baso % (Auto) 0.7, Absolute Neuts (auto) 3.1, Ab solute Lymphs (auto) 1.84, Nucleated RBC % 0 09/01/21 06:50: Sodium 141, Potassium 4.1, Chloride 111 H, Carbon Dioxide 26.0, Anion Gap 4 L, BUN 10, Creatinine 0.70, Estim Creat Clear Calc 114.44, Est GFR (MDRD) Af Amer 112, Est GFR (MDRD) Non-Af 93, BUN/Creatinine Ratio 14.3, Glucose 98, Calcium 8.6 Micro: Microbiology 08/30/21 07:26 Blood Culture (Wb) - Anticubital Left Blood Culture - Preliminary No growth in 48 hours. 08/30/21 07:26 Blood Culture (Wb) - Anticubital Right Blood Culture - Preliminary No growth in 48 hours. Assessment & Plan Assessment/Plan (1) Inability to ambulate due to left hip: (2) Left hip pain: PLAN: Continue PT with ambulatory assistance if needed. Continue current medication regimen. Case discussed with Dr. Kearney and patient No indication for surgical intervention Will re-assess at your request
[2021-09-01 08:45] VITALS: BP 118/76; PULSE 89; RESP 16; TEMP 36.7; O2SAT 94
[2021-09-01] MEDS: Enoxaparin 40 MG/0.4 ML Syringe SC (08:50)
--- NOTE | 2021-09-01 11:38 | DS.PCM_ITS ---
Providers Date of Admission: 08/30/21 Primary Care Physician: Dr. Zack Staples, Consultations 08/30/21 15:05 Consult: Orthopedics Routine Consulting Provider: Mitchell Alexander Reason for Consult: severe left hip pain EMERGENT Consult: No MD Notified: Yes Date Notified: 08/30/21 Time Notified: 15:05 Method of Notification: informed by ER doctor Reason For Visit: DEBILITY DUE TO SEVERE LEFT HIP PAIN Diagnosis Discharge Diagnosis (1) Inability to ambulate due to left hip: Status: Acute Code(s): R26.2 - Difficulty in walking, not elsewhere classified (2) Left hip pain: Status: Acute Code(s): M25.552 - Pain in left hip Medications at Discharge Home Medications NK 08/30/21 acetaminophen [Tylenol] 650 mg PO Q6H PRN PRN #30 tab 09/01/21 ibuprofen 400 mg PO Q4H PRN PRN #30 tab 09/01/21 methylprednisolone [Medrol (Vini)] 4 mg PO DAILY #21 tab 09/01/21 pantoprazole 20 mg PO DAILY #30 tab 09/01/21 Hospital Course Operations None Procedures None Summary of Care Provided Minutes Spent on Discharge: 45 Hospital Course: ARNALDO JOYCE, is a 55 F with a PMH as outlined including fibromyalgia who presents via the ED on 08/29/2021 with a complaint of left hip pain. Hip pain started spontaneously, and said she got up to go to the bathroom, but wasnt able to ambulate. Pain is better when shes resting, and worsened by movement. She took aleve a few hours before, which didnt help much. She denied any fall or any type of trauma to her hip. Patient said she worked in a local [employer] and was on her feet for long hours. REview of systems was otherwise negative. Vitals were BP of 158/91. {R pf 75,. RR of 18 and she was saturating at 98% on room air. CBC was unremarkable, and BMP was also unremarkable. ESR was 28, but CRP was markedly elevated at 24.8. Imaging of the left hip showed no acute findings and left knee xray also showed no acute findings. She was admitted to be managed for intractable left hip pain of unclear etiology. She was started on pain meds, and physical therapy was consulted. She had an MRI of the bony pelvis which showed small bone contusion of the left greater trochanter and right hip arthrosis as well as mild periarticular bony edema of the bilateral sacroiliac joints, suggestive of sacroiiliitis, and greater trochanteric bursitis and very mild bilateral greater trochanteric bursitis. Orthopedic surgery was consulted and recommended physical therapy and pain medication. Patient remained stable and she was able to ambulate with physical therapy while she is on a walker. She remained stable and was discharged home on 09/01/2021. She was given a prescription for outpatient physical therapy and also for p.o. ibuprofen and p.o. Tylenol. She was also given a script for PO medrol dose pack. She is to follow up with her PCP and orthopedic surgery. Patient seen and examined prior to discharge. She felt much better and had no complaints. Review of systems otherwise negative. Labs and vitals reviewed. Home meds reviewed and reconciled. Physical Exam Const alert, oriented x3 and no apparent distress General Appearance: cooperative, comfortable and well kempt Exam Limitations: no limitations and altered mental status HEENT normocephalic, head/scalp atraumatic, hearing grossly normal bilaterally and moist oral mucous membranes Eyes PERRL, EOMs intact bilaterally and conjunctivae normal Neck no lymphadenopathy Resp normal respiratory effort, no retractions, no use of accessory muscles and clear to auscultation bilaterally Cardio regular rate, regular rhythm, S1 normal heart sound, S2 normal heart sound and no murmurs GI normal to inspection, nondistended, normoactive bowel sounds, soft to palpation, non-tender and non-distended Extremity normal to inspection and no clubbing, cyanosis or edema Extremity Narrative: pain in left hip has improved Skin no rashes or lesions noted Neuro oriented x3 and moves all extremities Sensorium / Orientation: awake and alert Psych affect normal Weight / BMI Weight Weight: 173 lb 15.115 oz Body Mass Index (BMI) 37.6 ABG / Lab / Microbiology Data Result Diagrams: 09/01/21 06:50 09/01/21 06:50 Laboratory: Laboratory Results - last 24 hr 09/01/21 06:50: WBC 5.8, RBC 4.60, Hgb 12.4, Hct 38.8, MCV 84.3, MCH 27.0, MCHC 32.0, RDW Std Deviation 41.6, RDW Coeff of Saeed 13.4, Plt Count 308, MPV 9.2, Immature Gran % (Auto) 0.300, Neut % (Auto) 54.5, Lymph % (Auto) 31.9, Stephens % (Auto) 8.8, Eos % (Auto) 3.8, Baso % (Auto) 0.7, Absolute Neuts (auto) 3.1, Absolute Lymphs (auto) 1.84, Nucleated RBC % 0 09/01/21 06:50: Sodium 141, Potassium 4.1, Chloride 111 H, Carbon Dioxide 26.0, Anion Gap 4 L, BUN 10, Creatinine 0.70, Estim Creat Clear Calc 114.44, Est GFR (MDRD) Af Amer 112, Est GFR (MDRD) Non-Af 93, BUN/Creatinine Ratio 14.3, Glucose 98, Calcium 8.6 Microbiology: Microbiology 08/30/21 07:26 Blood Culture (Wb) - Anticubital Left Blood Culture - Preliminary No growth in 48 hours. 08/30/21 07:26 Blood Culture (Wb) - Anticubital Right Blood Culture - Preliminary No growth in 48 hours. D/C Instructions Discharge Diet: Low fat / Low cholesterol Discharge Activity: Return to Normal Activity Weight Bearing Status: Weight bearing as tolerated Call your doctor if you observe: Fever of 101 or Higher, Shortness of breath and Uncontrolled pain Meaningful Use Info Meaningful Use Diagnoses (Choose all that apply): None applicable Discharge Plan Admission Admit Date/Time: 08/30/21 08:57 Primary Reason for Your Visit: left hip pain Attending Provider: Erinn Canseco Primary Care Provider: Zack Staples Consulting Providers: Mitchell Alexander Instructions Patient Instructions: Back Safety Bed, Back Safety: Standing, Back Safety: Turning Discharge Orders/Prescriptions Prescriptions: New acetaminophen [Tylenol] 325 mg Tablet 650 mg PO Q6H PRN PRN (Reason: Pain Score 1-10/Temp > 100.7 F) Qty: 30 RF: 0 ibuprofen 400 mg Tablet 400 mg PO Q4H PRN PRN (Reason: Pain Score 1-10/Temp > 100.7 F) Qty: 30 RF: 0 methylprednisolone [Medrol (Vini)] 4 mg tablets,dose pack 4 mg PO DAILY Qty: 21 RF: 0 pantoprazole 20 mg tablet,delayed release (DR/EC) 20 mg PO DAILY Qty: 30 RF: 0 No Action NK RF: 0 Other Ambulatory Orders: Occupational Therapy Eval (Routine) Location: None Selected Ordered By: Dr. Erinn Canseco Physical Therapy Evaluation (Routine) Location: None Selected Ordered By: Dr. Erinn Canseco Referrals / Follow Up: Zack Staples DO [Primary Care Provider] - Within 2 Weeks Mitchell Alexander DO [STAFF PHYSICIAN] - Within 2 Weeks Disposition Disposition (needs filled in before D/C Order can be placed): Home, Self Care Charges/Coding Visit Charges OBSV E&M: 57204 Observation care discharge
[2021-09-01 14:20] VITALS: BP 111/67; PULSE 81; RESP 16; TEMP 36.5; O2SAT 96
== END 2021-09-01 15:20 | disposition home or self-care (01) ==
LOC: ED 08:06 → MS3 09:10
PROVIDERS: Admitting Provider Student in an Organized Health Care Education/Training Program; Emergency Provider Emergency Medicine; PCP Student in an Organized Health Care Education/Training Program; Visit Provider Student in an Organized Health Care Education/Training Program
DX: M25.552 Pain in left hip (principal); R26.2 Difficulty in walking, not elsewhere classified; M79.7 Fibromyalgia; J45.909 Unspecified asthma, uncomplicated; M19.90 Unspecified osteoarthritis, unspecified site
CPT/HCPCS: 36415; 72195; 73502; 73560; 80048; 84550; 85025; 85652; 86140; 87040; 96361; 96372; 96374; 97162; 97166; 99218; 99285; J7030; A4216; G0378

== ENCOUNTER 2021-11-07 10:00 | Outpatient (RCR) | payer MEDICAID, SELFPAY ==
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
--- NOTE | 2021-10-29 10:21 | HP.PTREVAL ---
Dr. Zack Staples, DO, It has been my pleasure to treat ARNALDO JOYCE over the last 10 visits for left hip pain. Please see the progress note below for an update on the physical therapy plan of care! Subjective: Pt reports that her pain is in her R ankle, L knee and L lateral thigh. They did a doppler to the L leg to see why the L leg is so swollen but has not gotten the results yet. She is taking naproxen, gabapetin, and Loratadin, inhaler. Pt knows that the Fibro is an ongoing thing. Her hip feels a whole lot better now. She still has trouble going up the steps. She can go up 2-3 steps. She is still using the walker to walk. If she is at home she only uses it when she goes to get up or if she needs it. She is not going back to work at this time. She is doing HEP at home, sit to stands, standing hip december. Objective/Function: L LE MMT: hip flexion 3+/5, Hip abd 3-/5, Knee flex and knee ext 3+/5. Gait: pt walked in with a front wheeled walker with no assistance. She walked 300 feet with no AD with decreased L DF and decreased knee flexion in swing phase. Stairs: up with the R and down with the L with 2 hand rails up and down 5 steps (pt said that was all she could do and not ready for full flight of stairs). L knee flexion 114 degrees and -1 degree extension, L hip to approx 80 degrees PROM Plan Plan: Work on increasing weight bearing strengthening as able and work on proper gait mechanics. Please work on MH, STM to quad, HS and hip L and work on stretching quad/hip flexor and knee into flexion (pt will be resistive to this). Balance/Gait/Functional tests - Balance/Special Test Scores Functional Gait Assessment Score: 22 % Disability: 26.6700 Lower Extremity Functional Score: 16 Goals Goal 1:: Pt to be I with HEP Goal Time Frame: 2 Weeks Goal Progress: Goal Met Goal 2:: Pt to decrease pain at rest <3/10 for increased activity tolerance. Goal Time Frame: 4-6 Weeks Goal Progress: 4 not 3 Goal 3:: Pt able to ambulate without AD at least 1000 ft. Goal Time Frame: 4-6 Weeks Goal Progress: 300 today Goal 4:: Pt to navigate flight of stairs with one HR to return to work environment. Goal Time Frame: 4-6 Weeks Goal Progress: Progressing 5 steps 2 ra Goal 5:: Pt to demonstrate AROM LLE WFL Goal Time Frame: 2-4 Weeks Goal Progress: Progressing Anticipated Interventions Patient/Client Instruction: Educate patient on: Condition, Plan of Care Therapeutic Exercise to Include: Strength training, Balance training, Body mechanics, Flexibilty training, Gait and locomotor training, Active ROM For the Purpose of:: To decrease pain, To increase ROM, To improve ability to perform ADL's, To increase flexibility/ROM, To assume or resume ADL's Cryotherapy (ice pack, ice massage): Yes Please do not hesitate to contact me at [phone] by phone or if you have questions or concerns regarding this new plan of care! Sincerely, Rossy Vela, MPT
--- NOTE | 2021-11-07 10:39 | HP.PTREVAL ---
Dr. Zack Staples, DO, It has been my pleasure to treat ARNALDO JOYCE over the last 12 visits for left hip pain. Please see the progress note below for an update on the physical therapy plan of care! Subjective: The left hip is still sore but its better than it was. Today: 02/18. She uses a FWW all the time- the MD wants her to use it. No falls since the initial fall. She feels that therapy is really helping and she wants to continue. Objective/Function: Posture: FH, RS- can correct with verbal cues but does not maintain. Gait: FWW- good omid- moderate hip flexion. Stairs: asc/desc 8 non recip with 2 HR. HR/TR: WNL with UE A. SLS: weight shift but unable to SLS. ROM: WFL. Strength: Core: fair minus, Hip: 4/5, Knee: 4+/5, Ankle: 4+/5 Plan Plan: 11/07/21: Continue WB exercises- kitchen sink exercises are performed for HEP- focus on functional mobility. Work on increasing weight bearing strengthening as able and work on proper gait mechanics. Please work on MH, STM to quad, HS and hip L and work on stretching quad/hip flexor and knee into flexion (pt will be resistive to this). Balance/Gait/Functional tests - Balance/Special Test Scores Functional Gait Assessment Score: 22 % Disability: 26.6700 Lower Extremity Functional Score: 16 Goals Goal 1:: Pt to be I with HEP Goal Time Frame: 2 Weeks Goal Progress: Goal Met Goal 2:: Pt to decrease pain at rest <3/10 for increased activity tolerance. Goal Time Frame: 4-6 Weeks Goal Progress: 4 not 3 Goal 3:: Pt able to ambulate without AD at least 1000 ft. Goal Time Frame: 4-6 Weeks Goal Progress: 300 today Goal 4:: Pt to navigate flight of stairs with one HR to return to work environment. Goal Time Frame: 4-6 Weeks Goal Progress: Progressing 5 steps 2 ra Goal 5:: Pt to demonstrate AROM LLE WFL Goal Time Frame: 2-4 Weeks Goal Progress: Progressing Anticipated Interventions Patient/Client Instruction: Educate patient on: Condition, Plan of Care Therapeutic Exercise to Include: Strength training, Balance training, Body mechanics, Flexibilty training, Gait and locomotor training, Active ROM For the Purpose of:: To decrease pain, To increase ROM, To improve ability to perform ADL's, To increase flexibility/ROM, To assume or resume ADL's Cryotherapy (ice pack, ice massage): Yes Please do not hesitate to contact me at [phone] by phone or if you have questions or concerns regarding this new plan of care! Sincerely, ILENE HarrisT
--- NOTE | 2022-02-19 07:43 | HP.PT.NRP ---
ARNALDO JOYCE was seen in my office for initial evaluation on 09/09/21. The following Plan of Care was established for this patient: Initial Frequency: 3x /Week Initial Duration: 4 Weeks Patient/Client Instruction: Educate patient on: Condition, Plan of Care Therapeutic Exercise to Include: Strength training, Balance training, Body mechanics, Flexibilty training, Gait and locomotor training, Active ROM For the Purpose of:: To decrease pain, To increase ROM, To improve ability to perform ADL's, To increase flexibility/ROM, To assume or resume ADL's Cryotherapy (ice pack, ice massage): Yes This patient was last seen in our office . Pertinent comments regarding their Physical therapy will appear below: Patient has not attended PT in over 30 days, appropriate to be d/c from PT and return to MD for further evaluation. At this point I will be discontinuing this patient from physical therapy. I would be happy to see this patient again in the future if found appropriate by the physician. Thank you! ILENE HarrisT Balance/Gait/Functional tests - Balance/Special Test Scores Functional Gait Assessment Score: 22 % Disability: 26.6700 Lower Extremity Functional Score: 16
== END 2021-11-07 19:00 | disposition home or self-care (01) ==
LOC: PT 10:00
PROVIDERS: PCP Student in an Organized Health Care Education/Training Program; Referring Provider Student in an Organized Health Care Education/Training Program; Visit Provider Student in an Organized Health Care Education/Training Program
DX: M25.552 Pain in left hip (principal); R26.2 Difficulty in walking, not elsewhere classified
CPT/HCPCS: 97110; 97140; 97161; 97164; 97530

== ENCOUNTER 2021-11-14 06:16 | Emergency (ER) | payer MEDICAID, SELFPAY ==
[2021-11-14 06:17] VITALS: BP 148/109; PULSE 103; PULSE 104; RESP 17; RESP 97; TEMP 36.7; O2SAT 98; BMI 40.3
--- NOTE | 2021-11-14 06:35 | RAD_ITS ---
STUDY: X-RAY CHEST REASON FOR EXAM: Female, 56 years old. Cough TECHNIQUE: PA and lateral views of the chest. COMPARISON: None. FINDINGS: Infiltrate in the left upper lobe. Patchy infiltrate in the right lower. Radiographic follow-up is recommended. There is no demonstrated pleural abnormality. Normal size heart. Normal mediastinum and martine. Normal visualized pulmonary arteries. Normal visualized aortic arch and descending thoracic aorta. There are diffuse degenerative changes of the visualized thoracic spine. Normal visualized ribs, clavicles, and shoulders. There is no demonstrated abnormality of the visualized soft tissue structures of the upper abdomen. RAD/Chest PA and Lateral IMPRESSION: Left upper lobe and right lower lobe infiltrates. Follow-up is recommended. Electronically Signed: Mg Arellano MD at 8:36 EST ,
--- NOTE | 2021-11-14 06:37 | EX.ED.DYSGE1 ---
HPI History of Present Illness Chief Complaint: General Illness Narrative Narrative: Patient is a 56-year-old female past medical history of asthma. She states she has had 3 to 5 days of nasal congestion and cough. She denies any fevers chills or known sick contacts. She denies any need for supplemental oxygen at home. She reports that she has been diagnosed with bronchitis in the past and is concerned she is developing this once again and therefore comes in for evaluation [facility] Medical History Anxiety Arthritis Asthma Depression Fibromyalgia Migraines Murmur Home Medications acetaminophen [Tylenol] 650 mg PO Q6H PRN PRN #30 tab 09/01/21 [Rx Last Taken Unknown] ibuprofen 400 mg PO Q4H PRN PRN #30 tab 09/01/21 [Rx Last Taken Unknown] pantoprazole 20 mg PO DAILY #30 tab 09/01/21 [Rx Last Taken Unknown] azelastine 2 spray INTRANASAL BID #30 ml 11/14/21 [Rx Last Taken Unknown] doxycycline hyclate 100 mg PO BID 10 Days #20 cap 11/14/21 [Rx Last Taken Unknown] prednisone 40 mg PO DAILY 5 Days #10 tab 11/14/21 [Rx Last Taken Unknown] promethazine-codeine 5 ml PO Q6H PRN 7 Days #140 ml 11/14/21 [Rx Last Taken Unknown] Allergy/AdvReac Type Severity Reaction Status Date / Time No Known Allergies Allergy Verified 11/14/21 06:22 Social History Smoking Status: Never smoker [facility] ED Constitutional Constitutional ED: Denies chills or fever(s) ENT ENT ED: Reports rhinorrhea and sore throat Cardiovascular Cardiovascular: Denies chest pain Respiratory/Chest Respiratory/Chest: Reports cough, dyspnea and sputum Gastrointestinal Gastrointestinal: Denies abdominal pain, diarrhea, nausea or vomiting Genitourinary Genitourinary ED: Denies dysuria Musculoskeletal Musculoskeletal: Denies myalgias Integumentary Denies rash Neurologic Neurologic: Denies headache(s) Hematologic/Lymphatic Hematologic/Lymphatic: Denies easy bleeding or easy bruising EXAM Physical Exam Const Vital Signs: 11/14/21 06:17 11/14/21 06:55 Temperature 98.0 F Temperature Source Temporal Pulse Rate 104 H 100 Respiratory Rate 97 H 24 H Respiratory Effort Normal Blood Pressure 148/109 H Blood Pressure Mean 122 Pulse Ox 98 Oxygen Delivery Method Room Air Positive well nourished and well developed General Appearance ED: well developed HEENT Reports moist mucous membranes HEENT Narrative: Nasal mucosa is hyperemic and boggy and there is cobblestoning the posterior pharynx consistent with sinus drainage but no airway edema or compromise Eyes PERRL and EOMs intact bilaterally Neck supple and no JVD Neck Narrative: Positive anterior cervical lymphadenopathy noted Resp normal respiratory effort Resp Narrative: Breast is are diminished throughout with faint expiratory wheezes in the bases Cardio regular rate and regular rhythm Rate: other Other Details: Radial pulses are plus 2 out of 4 bilaterally they are equal and symmetric Extremity normal to inspection Extremity Narrative: No asymmetric edema no pitting edema negative Homans' sign bilaterally Neuro oriented x3 and CN's II-XII intact bilaterally Sensorium / Orientation: alert Motor Exam: strength 5/5 throughout Psych mental status grossly normal Skin no rashes or lesions noted MDM MDM MDM Narrative Medical decision making narrative: Patient presented to the ER afebrile and in no acute respiratory distress satting 98% on room air. Her initial blood pressure was hypertensive but without medication it reduced to 144/76 which is an acceptable value. She has a reported history of asthma and with her congestion and cough I did elect to perform a chest x-ray to rule out underlying pneumonia or possible pneumothorax. However as she is afebrile and not hypoxic and in no acute distress I felt no need for laboratory studies. Chest x-ray revealed a left upper and right lower lobe infiltrate. On reevaluation she is resting comfortably and remains in no acute respiratory distress after receiving steroids and a DuoNeb breathing treat. Therefore at this time I will place her on steroids nasal spray cough syrup and doxycycline secondary to the pneumonia. However as she is afebrile and not hypoxic or in signs of respiratory distress I feel we can treat her on an outpatient basis and should be discharged at this time Radiography Chest X-Ray - ED: 2 View, Read by ED Physician, Right Infiltrate and Left Infiltrate Discharge Plan Triage Chief Complaint: General Illness ED Provider: Gustavo Lundberg Dx/Rx/DC Orders Clinical Impression: Pneumonia Instructions: Treating Pneumonia, ED Pneumonia (Adult) Prescriptions: New prednisone 20 mg tablet 40 mg PO DAILY 5 Days Qty: 10 RF: 0 azelastine 137 mcg (0.1 %) aerosol,spray 2 spray intranasal BID Qty: 30 RF: 0 promethazine-codeine 6.25-10 mg/5 mL syrup 5 ml PO Q6H PRN (Reason: cough) 7 Days Qty: 140 RF: 0 doxycycline hyclate 100 mg capsule 100 mg PO BID 10 Days Qty: 20 RF: 0 No Action acetaminophen [Tylenol] 325 mg Tablet 650 mg PO Q6H PRN PRN (Reason: Pain Score 1-10/Temp > 100.7 F) Qty: 30 RF: 0 ibuprofen 400 mg Tablet 400 mg PO Q4H PRN PRN (Reason: Pain Score 1-10/Temp > 100.7 F) Qty: 30 RF: 0 pantoprazole 20 mg tablet,delayed release (DR/EC) 20 mg PO DAILY Qty: 30 RF: 0 Primary Care Provider: Zack Staples Referrals: Zack Staples [Primary Care Provider] - Disposition Disposition: Home, Self Care
[2021-11-14] MEDS: predniSONE 20 MG Tablet 40 MG PO (06:54)
[2021-11-14 06:55] VITALS: PULSE 100; RESP 24
[2021-11-14] MEDS: Ipratropium/Albuterol Sulfate 3 ML AMPUL.NEB INHALATION (06:55)
[2021-11-14] MEDS: Doxycycline 100 MG CAPSULE PO (07:48)
[2021-11-14 07:52] VITALS: BP 135/65; PULSE 77; RESP 18; O2SAT 98
== END 2021-11-14 07:53 | disposition home or self-care (01) ==
PROVIDERS: Emergency Provider Emergency Medicine; PCP Student in an Organized Health Care Education/Training Program; Visit Provider Emergency Medicine
DX: J18.9 Pneumonia, unspecified organism (principal); M79.7 Fibromyalgia
CPT/HCPCS: 71046; 94640; 99283

== ENCOUNTER 2022-03-23 21:40 | Emergency (ER) | payer MEDICAID, SELFPAY ==
[2022-03-23 21:41] VITALS: BP 152/93; PULSE 78; RESP 15; TEMP 36.4; O2SAT 97; BMI 42.8
--- NOTE | 2022-03-23 22:06 | RAD_ITS ---
STUDY: RIGHT ANKLE X-RAY SERIES--3 VIEWS OF 2215 HOURS ON 03/23/2022 REASON FOR EXAM: 56-year-old female with right ankle trauma and pain. TECHNIQUE: 3 view(s) of the ankle. COMPARISON: None. FINDINGS: There is an oblique fracture of the lateral malleolus. There is a fracture of the tip of the medial malleolus. There is no evidence of a posterior malleolar fracture. Ankle mortise is unbalanced with widening medially. The talus and calcaneus have a normal appearance. There is circumferential soft tissue swelling surrounding the ankle. RAD/Ankle min 3 Views IMPRESSION: 1. Bimalleolar ankle fracture with oblique fracture lateral malleolus and a fracture of the tip of medial malleolus. 2. Ankle mortise is unbalanced with widening medially. 3. Circumferential soft tissue swelling around the ankle. Electronically Signed: Harpal Pedro MD at 23:31 EDT ,
--- NOTE | 2022-03-23 22:06 | RAD_ITS ---
STUDY: RIGHT FOOT X-RAY SERIES OF 2217 HOURS ON 03/23/2022 CLINICAL: 56-year-old female with right foot trauma and pain. TECHNIQUE: 3 view(s) of the foot. COMPARISON: None. FINDINGS: Mild valgus deformity of the first metatarsal-phalangeal joint with a mild bunion. Mild hammertoe deformities of third through fifth toes. No fractures or dislocations. No osseous lytic, sclerotic, or mass lesions are evident. Normal joint spaces without other arthritic or degenerative changes. Normal soft tissues. RAD/Foot min 3 Views IMPRESSION: 1. No fractures or dislocations. 2. Mild valgus deformity of the first metatarsal-phalangeal joint with a mild bunion. 3. Mild hammertoe deformities third through fifth toes. 4. No other arthritic or degenerative changes. 5. Normal surrounding soft tissues. Electronically Signed: Harpal Pedro MD at 23:44 EDT ,
--- NOTE | 2022-03-23 22:11 | EDS_ITS ---
HPI History of Present Illness Chief Complaint: Lower Extremity Injury Informant: patient Narrative Narrative: Patient complains of darkening mild swelling and discomfort to the right foot and ankle area. She states she slipped getting out of a car about 3 weeks ago. She did inversion of her ankle and it slid under the car. The car was not moving. She initially had mostly pain up in the right knee and some swelling. She reports being seen and x-rays of the knee done but none of the lower portion of the leg. The swelling is really at ankle and foot. Her calf is not hurting. No chest pain or trouble breathing. No history of DVT or PE in her or family members. [facility] Medical History Anxiety Arthritis Asthma Depression Fibromyalgia Migraines Murmur Home Medications acetaminophen [Tylenol] 650 mg PO Q6H PRN PRN #30 tab 09/01/21 [Rx Last Taken Unknown] ibuprofen 400 mg PO Q4H PRN PRN #30 tab 09/01/21 [Rx Last Taken Unknown] pantoprazole 20 mg PO DAILY #30 tab 09/01/21 [Rx Last Taken Unknown] azelastine 2 spray INTRANASAL BID #30 ml 11/14/21 [Rx Last Taken Unknown] doxycycline hyclate 100 mg PO BID 10 Days #20 cap 11/14/21 [Rx Last Taken Unknown] prednisone 40 mg PO DAILY 5 Days #10 tab 11/14/21 [Rx Last Taken Unknown] promethazine-codeine 5 ml PO Q6H PRN 7 Days #140 ml 11/14/21 [Rx Last Taken Unknown] Allergy/AdvReac Type Severity Reaction Status Date / Time No Known Allergies Allergy Verified 03/23/22 21:46 Social History Smoking Status: Never smoker ROS ROS ED Constitutional Constitutional ED: Denies chills or fever(s) Cardiovascular Cardiovascular: Denies chest pain or palpitations Respiratory/Chest Respiratory/Chest: Denies cough, dyspnea, dyspnea on exertion or sputum Gastrointestinal Gastrointestinal: Denies nausea or vomiting Musculoskeletal Musculoskeletal: Reports arthralgias and other Details: See history of present illness illness ; Denies back pain Integumentary Reports other Details: Bruising of right ankle and foot area. Neurologic Neurologic: Denies paresthesias Hematologic/Lymphatic Hematologic/Lymphatic: Denies easy bleeding or easy bruising Allergic/Immunologic Allergic/Immunologic ED: Denies urticaria EXAM Physical Exam Const Vital Signs: 03/23/22 21:41 Temperature 97.6 F L Temperature Source Temporal Pulse Rate 78 Respiratory Rate 15 Blood Pressure 152/93 H Blood Pressure Mean 112 Pulse Ox 97 Oxygen Delivery Method Room Air Positive well nourished and well developed General Appearance ED: well developed HEENT Reports moist mucous membranes Chest Wall inspection of chest normal Resp normal respiratory effort and clear to auscultation bilaterally Resp Narrative: No pain with deep breath Auscultation: Negative for rales, rhonchi or wheezes Cardio regular rate and regular rhythm Back/Spine no CVA tenderness Extremity Extremity Narrative: There is some ecchymosis around the ankle and foot. There is some tenderness at the lateral malleolus and the proximal fifth metatarsal. Achilles is intact by palpation and Decker test. Calcaneus does not appear to be uncomfortable with compression. I see no deformity. The calf itself is nontender. No swelling proximally. No cord. Neuro Sensorium / Orientation: alert Psych mental status grossly normal Skin no wounds Trauma: Negative for abrasion or laceration MDM MDM MDM Narrative Medical decision making narrative: Patient's foot x-ray shows chronic but no real acute changes. X-ray of the ankle does show fracture of the lateral malleolus and small tip of the medial malleolus. The concerning point is that her mortise is a little bit wider. We will place her in a boot orthosis. I explained that she needs to follow-up with orthopedics. This is 3 weeks old now. It still may need surgery. We will let orthopedics decide that as an out patient. She is actually been up walking on this since her injury though. Patient already has a walker. She will be nonweightbearing. We have did find out further information. She had actually fallen on a Thursday. She saw urgent care Thursday. But Thursday evening she slipped again and hurt this ankle. Therefore it was not hurting her was not even injured when she had seen urgent care originally. Radiography Diagnostic Testing: Clinical Impression(s) from Imaging Studies Ankle X-Ray 03/23/22 22:06 IMPRESSION: 1. Bimalleolar ankle fracture with oblique fracture lateral malleolus and a fracture of the tip of medial malleolus. 2. Ankle mortise is unbalanced with widening medially. 3. Circumferential soft tissue swelling around the ankle. Electronically Signed: Harpal Pedro MD at 23:31 EDT , Foot X-Ray 03/23/22 22:06 IMPRESSION: 1. No fractures or dislocations. 2. Mild valgus deformity of the first metatarsal-phalangeal joint with a mild bunion. 3. Mild hammertoe deformities third through fifth toes. 4. No other arthritic or degenerative changes. 5. Normal surrounding soft tissues. Electronically Signed: Harpal Pedro MD at 23:44 EDT , Discharge Plan Triage Chief Complaint: Lower Extremity Injury ED Provider: Errol Atkins Dx/Rx/DC Orders Clinical Impression: Bimalleolar fracture of right ankle Instructions: ED Ankle Fracture Prescriptions: No Action acetaminophen [Tylenol] 325 mg Tablet 650 mg PO Q6H PRN PRN (Reason: Pain Score 1-10/Temp > 100.7 F) Qty: 30 RF: 0 ibuprofen 400 mg Tablet 400 mg PO Q4H PRN PRN (Reason: Pain Score 1-10/Temp > 100.7 F) Qty: 30 RF: 0 pantoprazole 20 mg tablet,delayed release (DR/EC) 20 mg PO DAILY Qty: 30 RF: 0 prednisone 20 mg tablet 40 mg PO DAILY 5 Days Qty: 10 RF: 0 azelastine 137 mcg (0.1 %) aerosol,spray 2 spray intranasal BID Qty: 30 RF: 0 promethazine-codeine 6.25-10 mg/5 mL syrup 5 ml PO Q6H PRN (Reason: cough) 7 Days Qty: 140 RF: 0 doxycycline hyclate 100 mg capsule 100 mg PO BID 10 Days Qty: 20 RF: 0 Primary Care Provider: Zack Staples Referrals: Scooter Jonas MD [STAFF PHYSICIAN] - As soon as possible Zack Staples [Primary Care Provider] - Activity Restrictions/Additional Instructions: Call Dr. Jonas's office and orthopedics first thing Thursday. Please get into be seen as soon as possible. Avoid weightbearing on your leg. Disposition Disposition: Home, Self Care
[2022-03-24 00:25] VITALS: PULSE 74; RESP 16; O2SAT 98
== END 2022-03-24 00:25 | disposition home or self-care (01) ==
PROVIDERS: Emergency Provider Emergency Medicine; PCP Student in an Organized Health Care Education/Training Program; Visit Provider Emergency Medicine
DX: S82.841A Displaced bimalleolar fracture of right lower leg, initial encounter for closed fracture (principal); W01.0XXA Fall on same level from slipping, tripping and stumbling without subsequent striking against object, initial encounter; Y93.89 Activity, other specified; Y92.810 Car as the place of occurrence of the external cause
CPT/HCPCS: 73610; 73630; 99283

== ENCOUNTER → 2022-03-24 | Outpatient (CLI) | payer MEDICAID, SELFPAY ==
--- NOTE | 2022-03-24 14:57 | VDLE_ITS ---
Reason For Study: BLE Pain/Edema RIGHT LEFT GSV is normal. GSV is normal. CFV is compressible, spontaneous, phasic, CFV is compressible, spontaneous, phasic, competent and demonstrates normal competent, and demonstrates normal augmentation. augmentation. FV is compressible, spontaneous, phasic, FV is compressible, spontaneous, phasic, competent and demonstrates normal competent and demonstrates normal augmentation. augmentation. POP V is compressible, spontaneous, phasic, POP V is compressible, spontaneous, phasic, competent and demonstrates normal competent and demonstrates normal augmentation. augmentation. T/P Trunk is compressible. T/P Trunk is compressible. PTV is compressible. PTV is compressible. RT PerV is compressible. LT PerV is compressible. Procedure This is a venous duplex using B-mode, color flow and spectral Doppler. Exam performed in department. A preliminary report was called and/or faxed to Dr. Tamez. VL/Venous Duplex US - Wilian Extrem Interpretation Summary Deep veins of the lower extremities are bilaterally patent and compressible seg mentally. There is no evidence of deep vein thrombosis on either side. Valvular competence appears in tact within the proximal deep venous systems bilaterally. The great saphenous veins appear bila terally patent and compressible segmentally. Ordering Physician: Dc Tamez Referring Physician: Zack Staples Performed By: Cici Corona, LUIS FELIPE, RVT
== END | disposition home or self-care (01) ==
PROVIDERS: PCP Student in an Organized Health Care Education/Training Program; Referring Provider Podiatrist; Visit Provider Podiatrist
DX: R60.0 Localized edema (principal); M79.604 Pain in right leg; M79.605 Pain in left leg
CPT/HCPCS: 93970

== ENCOUNTER → 2022-06-05 | Outpatient (CLI) | payer MEDICAID, SELFPAY ==
--- NOTE | 2022-06-05 07:07 | CT_ITS ---
STUDY: CT RIGHT ANKLE WITHOUT CONTRAST REASON FOR EXAM: Female, 56 years old. Right ankle fracture. RADIATION DOSAGE (If Supplied By Facility): CTDIvol = ( 11.90 ) mGy, DLP = ( 257.47 ) mGycm TECHNIQUE: Thin section transaxial imaging of the ankle was obtained, with sagittal and coronal reconstructed images. Individualized dose optimization techniques were used for this CT. COMPARISON: None. FINDINGS: There is a comminuted oblique fracture of the distal fibular diametaphysis with minimal displacement. There is a minimal fracture of the anterior medial malleolus. The distal tibia is otherwise unremarkable. Narrowing of the tibiotalar articulation with very mild lateral subluxation Normal talus, calcaneus, navicular and cuboid tarsal bones. There is a small indices obtained at the insertion of the Achilles tendon upon the calcaneus. Normal subtalar, talonavicular and calcaneocuboid articulations. Normal navicular-cuneiform, cuneiform tarsal bones and intercuneiform articulations. Normal tarsometatarsal articulations and visualized metatarsi. Diffuse soft tissue swelling about the ankle extending to the dorsum of the hindfoot. No obvious tendinous or ligamentous abnormality. If there is concern, MRI is more elegant in depicting soft tissue injury. CT/Extremity Lower without Contra IMPRESSION: Mildly displaced fractures of the distal fibular diametaphysis and anterior medial malleolus with slight lateral subluxation of the ankle Electronically Signed: Rafael Carver DO at 20:48 EDT ,
== END | disposition home or self-care (01) ==
LOC: CT 07:06
PROVIDERS: PCP Student in an Organized Health Care Education/Training Program; Referring Provider Podiatrist; Visit Provider Podiatrist
DX: S82.61XA Displaced fracture of lateral malleolus of right fibula, initial encounter for closed fracture (principal); X58.XXXA Exposure to other specified factors, initial encounter
CPT/HCPCS: 73700

== ENCOUNTER 2022-08-06 15:00 | Outpatient (RCR) | payer MEDICAID, SELFPAY ==
--- NOTE | 2022-06-04 11:01 | HP.PTEVAL_ITS ---
Patient's Visit Information ARNALDO JOYCE is a 56 year old F referred to Physical Therapy by TRUDY SOLORZANO with a diagnosis of ARTHRITIS HIP,CHRONIC LEFT SIDED LBP WITH SCIATICA,ACUTE PAIN RIGHT KNEE. Date of Evaluation: 06/04/22 Physical Therapist: Carlyle Mattson, PT, Cert MDT, OCS - Visit Plan Frequency: 2x /Week Duration: 4 Weeks Plan: KEEP BOOT ON RIGHT FOOT. PT INTERVETIONS DLS ,POSTURAL EX'S ,ROM' HIP/KNEE, STRENGTHNEING QUADS/HAMS/HIP , FUNCTIONAL STRENGTHNEING ND NUSTEP - Subjective This 56 y/o female presents to physical therapy with back ,hip and knee pain. Patient in February fell down steps fx ankle ,hand molder and caster placed in boot and used walker. Patient has been using walker since 2020. Patient for many years located lumbar symmetrical. Aggravating factors standing ,walking ,bending ,lifting . Alleviating rest . Coughing/sneezing-. Bowel/bladder -.C/O paresthesia/tingling hands feet. MEDS trazodone. Patient bas left hip pain lateral hip tender h/o bursitis. Aggravating factors laying in left hip. Patient knee pain located right global. Aggravating factors knee unable to squat /kneeling and difficulty with steps. Patient had x-rays knee DJD. Patient has multiple complexity issue with knee pain/hip pain and lumbar pain affects QOL. VOACTION: disability. SOCIAL: single - Pain Bilateral Back Pain Intensity (Out of 10): 6 Pain Intensity Range: 10 Left Hip Pain Intensity (Out of 10): 6 Pain Intensity Range: 10 Right Knee Pain Intensity (Out of 10): 6 Pain Intensity Range: 10 - Objective POSTURE: mild forward posture ,increase lordosis. GAIT: reciprocal pattern with decrease stance time with boot slow omid mild forward posture with boot on right foot. NEURO: reflexes L3-4.L4-5,L5-S1 1/3 C/O numbness in feet. AROM : supine knee flexion 5-100 degrees supine ,hip flexion 80 degrees ,abduction 30degrees ,IR , < 0 degrees. MMT: quads/hams 4/5,hip flexion 4-/5,hip abd 3+/5 ,ankle 4/5. FLEXABILITY: hamstrings mod, piriformis mod tight. LUMBAR ROM: flexion mod loss ,extension loss ,side glides mod loss - Special Tests L/S Slump test left side: Negative L/S Slump test right side: Negative L/S Left Straight Leg Raise: Negative L/S Right Straight Leg Raise: Negative L Hip Scour: Negative L Hip DEJAN - Intraarticular Pathology: Positive L Hip Cathleen - IT Band: Negative R Knee Elissa - Meniscus: Positive R Knee Valgus - MCL: Negative R Knee Varus - LCL: Negative R Knee Patellar Apprehension - PFS: Negative - Balance/Special Test Scores Lower Extremity Functional Score: 20 - Goals Goal 1:: I with HEP for back /hip/knee. Goal Time Frame: 4-6 Weeks Goal 2:: Patient to demonstrate 40% improvement with improved function and less pain Goal Time Frame: 4-6 Weeks Goal 3:: Patient to improve knee/hip ROM to improve by 5-10 degrees to improve gait Goal Time Frame: 4-6 Weeks Goal 4:: Patient improve lumbar ROM for function of recovery to put on shoes Goal Time Frame: 4-6 Weeks Goal 5:: Patient to improve LFES score by 5 points to improve gait with QOL. Goal Time Frame: 4-6 Weeks - Rehabilitation Potential Physical Therapy Diagnosis: This patient has multiple complexity issues with right lumbar pain ,left hip pain and right knee pain with decrease ROM hip /knee / lumbar ,weakness ,needs fww with gait thus benefit from skilled PT Rehabilitation Potential: Good - Anticipated Interventions Patient/Client Instruction: Educate patient on: Condition, Plan of Care For the Purpose of:: To decrease pain, To increase ROM, To improve muscle performance and motor function, To improve ability to perform ADL's, To increase tolerance to activity/condition/position, To improve ability of physical actions for home/community/work/leisure, To improve health of tissue, To decrease soft tissue restriction, To increase flexibility/ROM, To improve balance, To prevent re-injury Therapeutic Exercise to Include: Strength training, Endurance training, Balance training, Postural training, Flexibilty training, Passive ROM, Active ROM, Dynamic Lumbar Stabilization Comment: ble For the Purpose of:: To decrease pain, To increase ROM, To improve muscle performance and motor function, To improve ability to perform ADL's, To increase tolerance to activity/condition/position, To improve performance and independence with ADL's, To improve ability of physical actions for home/community/work/leisure, To improve health of tissue, To decrease soft tissue restriction, To increase flexibility/ROM, To prevent re-injury, To improve tolerance to ADL's TENS: Yes IF ES: Yes Cryotherapy (ice pack, ice massage): Yes Thermo therapy (hot pack): Yes Ultrasound (thermal/non thermal): Yes For the Purpose of:: To decrease pain, To decrease swelling/inflammation, To improve health of tissue, To decrease soft tissue restriction Thank you for the opportunity to evaluate your patient. For Medicare and Medicare HMO plans, please review the plan of care and approve it. It will need to be FAXED BACK to us at [phone] for Medicare purposes. For Medicare only, by signing this I certify the plan of care. Please let me know if there are questions or concerns regarding this plan of care. Physician Signature: Date:
--- NOTE | 2022-08-06 15:28 | HP.PTDCSUM ---
It has been my pleasure to treat ARNALDO JOYCE referred by TRUDY SOLORZANO, with the diagnosis of ARTHRITIS HIP,CHRONIC LEFT SIDED LBP WITH SCIATICA,ACUTE PAIN RIGHT KNEE for a total of 13 visit(s). Discharge Date: 08/06/22 Please see the following information for a summary of their discharge status. Subjective: Doing okay Bilateral Back Pain Intensity (Out of 10): 0 Left Hip Pain Intensity (Out of 10): 2 Right Knee Pain Intensity (Out of 10): 0 % Improvement: 90 Objective/Function: POSTURE: WFL. GAIT: reciprocal pattern with cam boot. MMT: quads/hams 4/5 ,hip flexion 4-/5,abd 4-/5 ,right ankle NT. LUMBAR ROM: flexion min loss ,extension min loss. GAIT: ambulates with CAM boot with FWW. AROM : KNEE FLEXION 0-120 DEGREES ,HIP FLEXION 100 ,ABD 35 DEGREES Goal 1:: I with HEP for back /hip/knee. Goal Progress: Goal Met Goal 2:: Patient to demonstrate 40% improvement with improved function and less pain Goal Progress: Goal Met Goal 3:: Patient to improve knee/hip ROM to improve by 5-10 degrees to improve gait Goal Progress: Goal Met Goal 4:: Patient improve lumbar ROM for function of recovery to put on shoes Goal Progress: Goal Met Goal 5:: Patient to improve LFES score by 5 points to improve gait with QOL. Goal Progress: Goal Met Plan: D/C Discharge Comments: HEP If there are questions or concerns regarding this patient's physical therapy, please feel free to call me at [phone]. Thank you for the referral of this patient. Sincerely, Carlyle Mattson, PT, Cert MDT, OCS Balance/Gait/Functional tests - Balance/Special Test Scores Lower Extremity Functional Score: 41
== END 2022-08-06 19:00 | disposition home or self-care (01) ==
LOC: PT 15:00
PROVIDERS: PCP Student in an Organized Health Care Education/Training Program; Referring Provider Nurse Practitioner Family; Visit Provider Nurse Practitioner Family
DX: M16.10 Unilateral primary osteoarthritis, unspecified hip (principal); M79.7 Fibromyalgia; M54.50 Low back pain, unspecified; G89.29 Other chronic pain; M25.561 Pain in right knee
CPT/HCPCS: 97110; 97162

== ENCOUNTER → 2022-10-08 | Outpatient (CLI) | payer MEDICAID, SELFPAY ==
--- NOTE | 2022-10-08 13:48 | VDLE_ITS ---
Reason For Study: LEG PAIN RIGHT LEFT GSV is normal. GSV is normal. CFV is compressible, spontaneous, phasic, CFV is compressible, spontaneous, phasic, competent and demonstrates normal competent, and demonstrates normal augmentation. augmentation. FV is compressible, spontaneous, phasic, FV is compressible, spontaneous, phasic, competent and demonstrates normal competent and demonstrates normal augmentation. augmentation. POP V is compressible, spontaneous, phasic, POP V is compressible, spontaneous, phasic, competent and demonstrates normal competent and demonstrates normal augmentation. augmentation. T/P Trunk is compressible. T/P Trunk is compressible. PTV is compressible. PTV is compressible. RT PerV is compressible. LT PerV is compressible. Procedure This is a venous duplex using B-mode, color flow and spectral Doppler. Exam performed in department. The exam was diagnostic. A preliminary report was called and/or faxed to Dr. Tamez. VL/Venous Duplex US - Wilian Extrem Interpretation Summary Deep veins of the lower extremities are bilaterally patent and compressible seg mentally. There is no evidence of deep vein thrombosis on either side. Valvular competence appears in tact within the proximal deep venous systems bilaterally. The great saphenous veins appear bila terally patent and compressible segmentally. Ordering Physician: Dc Tamez Performed By: rC Chaudhry RVT
== END | disposition home or self-care (01) ==
LOC: CVS 13:47
PROVIDERS: PCP Student in an Organized Health Care Education/Training Program; Visit Provider Podiatrist
DX: M79.606 Pain in leg, unspecified (principal); R22.43 Localized swelling, mass and lump, lower limb, bilateral
CPT/HCPCS: 93970

== ENCOUNTER 2023-01-22 13:00 | Outpatient (RCR) | payer MEDICAID, SELFPAY ==
--- NOTE | 2022-12-01 12:45 | HP.PTEVAL ---
Patient's Visit Information ARNALDO JOYCE is a 57 year old F referred to Physical Therapy by Dr. Dc Tamez DPM with a diagnosis of R fibular fracture. Date of Evaluation: 11/28/22 Physical Therapist: Antoni Flowers DPT - Visit Plan Frequency: 2x /Week Duration: 8 weeks Plan: Start with WBing activities, add in banded ankle exercises. Progress walking from AD to no AD as tolerated. Progressive walking program. Pt. is fearful with walking without AD and more fearful with stair negotiation. Progress as tolerated. Pt. had questions about continued use of bone stimulator. Physician note said to DC, but patient was unsure. I will call to check for her. - Subjective Pt. is here today for her initial evaluation with diagnosis of R lower leg fracture. Pt. sustained a displaced fx of lateral malleolus of R fibula in 2021. Pt. was in a boot for 5 months with use of bone stimulator attempting to promote safe healing. 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 Pt. arrives with use of walking, but has decent step length. Pt. is also just had an EMG done of Eliseo, showing B carpal tunnel and is having an MRI of her cervical spine soon. Pt. reports doing some banded exercises at home and some stretching. Pt. reports having pain at metatarsals and across the top of her ankle. She is no longer wearing a CAM boot, but does not walk much. She has her children help out with all shopping. She has been off work for some time now. Prior to this injury she was doing all ADLs and IADLs except driving, Independently. Pt. is hopeful to get back to that point. She does use the walker for most of her mobility. She reports being able to ascend stairs, but very difficult, but has to scoot down then on her buttocks. - Pain R metatarsals Pain Intensity (Out of 10): 4 Pain Intensity Range: 0, 6 R lateral ankle Pain Intensity (Out of 10): 3 Pain Intensity Range: 1, 8 Anterior aspect of ankle Pain Intensity (Out of 10): 4 Pain Intensity Range: 1, 7 - Objective POSTURE: Pt. has FH posture, slight wt. shift to L side. Pt. has slight reduction in lumbar lordosis. PALPATION: pt. has tenderness at R lateral ankle, but more so on the plantar surface of her foot. Increase NW throughout. NEURO: normal sensation and normal DTR throughout BLEs. Pt. is able to rise on heels and toes, but has increased pain with doing so. ROM: Pt. has tightness in her R ankle DF 5deg, EVR- 4deg, INV 8deg, PF 38deg. Pt. has marked tightness in her calf. Normal B knee ROM. MMT: RLE: ankle 4/5 throughout with mild increase NW, knee: flexion 5-/5, ext 5-/5; hip: flexion 4/5, abd 4/5, ext 4/5. LLE: ankle 5/5; knee: ext 5-/5, flexion 5-/5; hip 4/5 throughout. GAIT: Pt. is able to ambulate without walker ~50feet. She has guarded posture with decreased step length and early heel off with RLE. Pt. has increased pain with R stance phase and increased pain during R forefoot rocker moment as well. Minimal pain with walking with use of FWW. STEPs: pt. is able to complete with 2 HR, but very fearful with attempts. Pt. seemed to be more fearful than painful with attempting. - Balance/Special Test Scores Lower Extremity Functional Score: 29 TUG Test Time Seconds: 18.7 - Goals Goal 1:: LTG: PT. to be I with HEP. Goal Time Frame: 4-6 Weeks Goal 2:: STG: Pt. to have increased R ankle DF ROM to 15 deg. allowing for better gait pattern and stair negotiation. Goal Time Frame: 2-4 Weeks Goal 3:: LTG: Pt. to negotiate steps with 1 HR with reciprocal pattern without increase in symptoms. Goal Time Frame: 4-6 Weeks Goal 4:: LTG: Pt. to ambulate with out AD with good step length, normal pattern and no pain for at least 500'+ allowing for improved community ambulation. Goal Time Frame: 4-6 Weeks Goal 5:: LTG: pt. to have 5/5 strength throughout RLE allowing for increased ability to complete all ADLs and functional mobility. Goal Time Frame: 4-6 Weeks Goal 6:: STG: Pt. to be able to walk throughout home with out AD with good tolerance in RLE. Goal Time Frame: 2-4 Weeks - Rehabilitation Potential Physical Therapy Diagnosis: Pt. has signs and symptoms consistent with a R fibular fracture that was initially non healing, but is doing better now. Pt. no has marked hypomobility, weakness, increased pain, fear of falling and decreased functional mobility. Pt. would benefit from PT to address the above limitations progressing back to all work and recreational activities without limitations. Rehabilitation Potential: Good - Anticipated Interventions Patient/Client Instruction: Educate patient on: Condition, Plan of Care, Risk Factors, Benefits of Fitness Program For the Purpose of:: To improve decision making, To facilitate caregiver knowledge, To improve self management, To prevent re-injury, To improve ability to perform tasks related to life management Therapeutic Exercise to Include: Strength training, Power training, Endurance training, Balance training, Coordination, Postural training, Flexibilty training, Gait and locomotor training, Neuromotor development, Passive ROM, Active ROM, Dynamic Lumbar Stabilization For the Purpose of:: To decrease pain, To increase ROM, To improve nutrient delivery to tissue, To increase oxygenation perfusion, To improve muscle performance and motor function, To improve ability to perform ADL's, To increase tolerance to activity/condition/position, To improve performance and independence with ADL's, To decrease level of supervision to perform tasks, To improve ability of physical actions for home/community/work/leisure, To improve gait and locomotor functions, To improve health of tissue, To decrease soft tissue restriction, To increase flexibility/ROM, To improve endurance, To improve balance, To improve safety with gait Thank you for the opportunity to evaluate your patient. For Medicare and Medicare HMO plans, please review the plan of care and approve it. It will need to be FAXED BACK to us at [phone] for Medicare purposes. For Medicare only, by signing this I certify the plan of care. Please let me know if there are questions or concerns regarding this plan of care. Physician Signature: Date:
--- NOTE | 2023-01-22 15:28 | HP.PTDCSUM ---
It has been my pleasure to treat ARNALDO JOYCE referred by Dr. Dc Tamez DPM, with the diagnosis of R fibular fracture for a total of 11 visit(s). Discharge Date: 01/22/23 Please see the following information for a summary of their discharge status. Subjective: Pt. reports doing much better. No ankle pain noted. Pt. reports walking around her block x2 yesterday and being tired, but no pain. R metatarsals Pain Intensity (Out of 10): 0 R lateral ankle Pain Intensity (Out of 10): 0 Anterior aspect of ankle Pain Intensity (Out of 10): 0 L Hip Pain Intensity (Out of 10): 0 % Improvement: 95 Objective/Function: ROM: Pt. has good ROM of R ankle without increase in symptoms. MMT: 5/5 throughout BLEs. 6 MWT: 1231feet. stairs: Pt. completed with reciprocal pattern with use of 2 HR. Pt. is able to do all activities without increase in symptoms. Overall she is doing much better. She reports no pain. She is going to have an injection done on her cervical spine next week. I am going to DC her from PT for her foot/ankle at this point in time. Goal 1:: LTG: PT. to be I with HEP. Goal Progress: Goal Met Goal 2:: STG: Pt. to have increased R ankle DF ROM to 15 deg. allowing for better gait pattern and stair negotiation. Goal Progress: Goal Met Goal 3:: LTG: Pt. to negotiate steps with 1 HR with reciprocal pattern without increase in symptoms. Goal Progress: Goal Met Goal 4:: LTG: Pt. to ambulate with out AD with good step length, normal pattern and no pain for at least 500'+ allowing for improved community ambulation. Goal Progress: Goal Met Goal 5:: LTG: pt. to have 5/5 strength throughout RLE allowing for increased ability to complete all ADLs and functional mobility. Goal Progress: Goal Met Goal 6:: STG: Pt. to be able to walk throughout home with out AD with good tolerance in RLE. Goal Progress: Goal Met Plan: DC to HEP and walking program. Pt. to see physiican in March or sooner as needed. Discharge Comments: Pt. was seen for ankle and foot injury. She is overall doing much better. She has good strength and ROM. Her mobility has drastically improved. At this point in time I am going to DC her back to her HEP and physician as needed. Pt. consents. If there are questions or concerns regarding this patient's physical therapy, please feel free to call me at [phone]. Thank you for the referral of this patient. Sincerely, Antoni Flowers, DPT Balance/Gait/Functional tests - Balance/Special Test Scores Lower Extremity Functional Score: 68 TUG Test Time Seconds: 18.7 Tug Test: <20 sec.=mostly independent
== END 2023-01-22 15:31 | disposition home or self-care (01) ==
LOC: PT 13:00
PROVIDERS: PCP Student in an Organized Health Care Education/Training Program; Referring Provider Podiatrist; Visit Provider Podiatrist
DX: S82.91XD Unspecified fracture of right lower leg, subsequent encounter for closed fracture with routine healing (principal)
CPT/HCPCS: 97110; 97161; 97164

== ENCOUNTER 2023-08-28 09:06 | Emergency (ER) | payer MEDICAID, SELFPAY ==
[2023-08-28 09:07] VITALS: BP 141/87; PULSE 99; RESP 18; TEMP 36.6; O2SAT 97; BMI 40.6
--- NOTE | 2023-08-28 09:22 | ED.VIS.DYS ---
HPI History of Present Illness Chief Complaint: Cough Narrative Narrative: 57-year-old female past medical history of asthma and chronic bronchitis, non-smoker, presents with 3 days worth of shortness of breath and cough. She states she has been sick for the last few days, and sometimes when she coughs she has pain across her chest. She denies any nausea or vomiting, no fevers or diaphoresis but she states she has body aches as well. She had more URI type symptoms with cough, congestion, runny nose. She uses nasal spray as well as inhalers. She presents because of the cough and shortness of breath, and wants to be tested for COVID and influenza. [facility] Medical History Anxiety Arthritis Asthma Depression Fibromyalgia Migraines Murmur Home Medications azelastine 137 mcg (0.1 %) nasal spray aerosol 2 spray intranasal BID #30 mL 11/14/21 [Rx Last Taken Unknown] gabapentin 100 mg capsule 100 mg PO 06/25/22 [History Last Taken Unknown] lisinopril 5 mg tablet 5 mg PO 06/25/22 [History Last Taken Unknown] meloxicam 15 mg tablet 15 mg PO DAILY #21 tabs 06/25/22 [Rx Last Taken Unknown] naproxen 500 mg tablet 500 mg PO 06/25/22 [History Last Taken Unknown] trazodone 100 mg tablet 100 mg PO 06/25/22 [History Last Taken Unknown] Allergy/AdvReac Type Severity Reaction Status Date / Time No Known Allergies Allergy Verified 08/28/23 09:06 Social History Smoking Status: Never smoker ROS ROS ED ROS Narrative Constitutional: No fever, no chills. HEENT: No sore throat. No neck pain. No loss of vision. No rhinorrhea nasal congestion. Cardiovascular: No chest pain. No palpitations. No pedal edema. Respiratory: Positive cough, occasional shortness of breath. Abdominal: No abdominal pain. No nausea. No vomiting. Genitourinary: No dysuria. No hematuria. Musculoskeletal:. Multiple myalgias. No arthralgias. Neurologic: No headaches. No dizziness. No lightheadedness. Skin: No rash. No change in color. Psychiatric: No depression. No anxiety. EXAM Physical Exam Narrative Exam Narrative: Afebrile. Vital signs noted. HEENT: Normocephalic. Atraumatic. PERRL, EOMI. Neck soft and supple. No point tenderness or step off. Positive nasal congestion. Cardiovascular: Regular rate and rhythm. No murmurs, rubs, or gallops appreciated. Respiratory: No tachypnea. Lungs clear to auscultation bilaterally. Gastrointestinal: Abdomen soft, nontender, with normoactive bowel sounds. No rebound or guarding. Neurological: Awake. Alert. Nonfocal, nonlateralizing. Skin: No rash. Normal color. No pallor. Musculoskeletal: No pedal edema. Full range of motion extremities. Const Vital Signs: 08/28/23 09:07 08/28/23 09:33 Temperature 97.9 F Temperature Source Temporal Pulse Rate 99 Respiratory Rate 18 Respiratory Effort Normal Non-Labored Respiratory Depth Normal Respiratory Pattern Normal Blood Pressure 141/87 H Blood Pressure Mean 105 Pulse Ox 97 Oxygen Delivery Method Room Air Room Air MDM MDM MDM Narrative Medical decision making narrative: Patient's vital signs are within normal limits save for slightly elevated blood pressure of 141/87. I have low suspicion for acute coronary syndrome and do not feel EKG is indicated as she is having more URI type symptoms and symptoms of her chronic bronchitis versus pneumonia. Chest x-ray in 2 views will be obtained to help rule out pneumonia or pneumothorax. Pulse ox is 97% on room air. She was also swabbed for COVID and influenza. Chest x-ray in 2 views interpreted by myself independently shows no evidence of pneumonia or pneumothorax. I do not feel that antibiotics are indicated. I reviewed the radiology report which confirms my independent interpretation and does comment on scarring in the left upper lobe versus atelectasis. I reviewed her respiratory swabs and she is positive for COVID. At this point in time, I do feel that she can be discharged with continued symptomatic treatment. She has been ill for the last 4 days. She is afebrile here. Return instructions to the emergency department were reviewed. I do not feel she requires admission at this time. Disposition is discharged home in stable condition. History & Record Review Discussion w/independent historian: Patient Additional record(s) reviewed:: Prior ED visit Lab Data Attestation: I reviewed the patient's lab results. Lab results narrative: Respiratory swabs positive for COVID Radiography Diagnostic Testing: Clinical Impression(s) from Imaging Studies Chest X-Ray 08/28/23 09:35 IMPRESSION: The previously seen bilateral infiltrates have cleared. Mild increased markings in the anterior aspect of the left upper lobe suggestive of atelectasis and/or scarring. Electronically Signed: Mg Arellano MD at 9:53 EST , Discharge Plan Triage Chief Complaint: Cough ED Provider: Fredi Raymundo Dx/Rx/DC Orders Clinical Impression: COVID, URI (upper respiratory infection) Instructions: Coronavirus Disease 2019 (COVID-19): Caring for Yourself or Others, ED URI, Viral, No Abx (Adult) Prescriptions: No Action trazodone 100 mg tablet 100 mg PO naproxen 500 mg tablet 500 mg PO gabapentin 100 mg capsule 100 mg PO Patient Comments: TAKE 1 CAPSULE BY MOUTH THREE TIMES DAILY lisinopril 5 mg tablet 5 mg PO meloxicam 15 mg tablet 15 mg PO DAILY Qty: 21 0RF Rx Instructions: STOP ALL other NSAIDS (d/c Naproxen) azelastine 137 mcg (0.1 %) aerosol,spray 2 spray intranasal BID Qty: 30 0RF Rx Instructions: administer into each nostril Primary Care Provider: Zack Staples Referrals: Zack Staples OLS [[facility]] - 1 Week if not improving Disposition Disposition: Home, Self Care
--- NOTE | 2023-08-28 09:35 | RAD_ITS ---
STUDY: X-RAY CHEST REASON FOR EXAM: Female, 57 years old. Cough, shortness of breath TECHNIQUE: PA and lateral views of the chest. COMPARISON: Comparison is made with prior study of November 14, 2021. FINDINGS: The previously seen bilateral pulmonary infiltrates have cleared. There now is evidence of increased linear markings in the anterior aspect of the left upper lobe suggestive of either linear atelectasis and/or scarring. There is no demonstrated pleural abnormality. Normal size heart. Normal mediastinum and martine. Normal visualized pulmonary arteries. Normal visualized aortic arch and descending thoracic aorta. There are diffuse degenerative changes of the visualized thoracic spine. Normal visualized ribs, clavicles, and shoulders. There is no demonstrated abnormality of the visualized soft tissue structures of the upper abdomen. RAD/Chest PA and Lateral IMPRESSION: The previously seen bilateral infiltrates have cleared. Mild increased markings in the anterior aspect of the left upper lobe suggestive of atelectasis and/or scarring. Electronically Signed: Mg Arellano MD at 9:53 EST ,
== END 2023-08-28 10:28 | disposition home or self-care (01) ==
PROVIDERS: Emergency Provider Emergency Medicine; PCP Student in an Organized Health Care Education/Training Program; Visit Provider Emergency Medicine
DX: U07.1 COVID-19 (principal); J06.9 Acute upper respiratory infection, unspecified
CPT/HCPCS: 71046; 87428; 99282